=== PATIENT | male | born 1940 | race Caucasian/White ===

== ENCOUNTER → 2016-11-21 | Outpatient (CLI) | payer MEDICARE ==
[2016-05-13 11:15] VITALS: BP 144/69
[~2016-11-21] MED LIST: ALLO300T PO; ATOR40TA59 PO; BUME1TAB PO; LISI10TA2 PO; METO50TA10 PO; OMEP40CA5 PO; POTA20TA4 PO; VALA1000 PO; WARF2TAB7 PO; WARF4TAB7 PO
[2016-11-21 16:07] LABS: CALCIUM 9.4 mg/dL (8.5-10.1); CREATININE 2.4 mg/dL (0.7-1.3); GFR 26.5; POTASSIUM 5.9 mmol/L (3.5-5.1)
== END | disposition home or self-care (01) ==
LOC: LAB 15:33
PROVIDERS: ATTEND Family Medicine
DX: I50.9 Heart failure, unspecified (principal)
CPT/HCPCS: 36415; 80048

== ENCOUNTER → 2016-11-26 | Outpatient (CLI) | payer MEDICARE ==
[2016-05-13 11:15] VITALS: BP 144/69
[2016-11-26 16:47] LABS: CALCIUM 9.3 mg/dL (8.5-10.1); GFR 32.6
[2016-11-26 17:04] LABS: POTASSIUM 6.2 mmol/L (3.5-5.1)
== END | disposition home or self-care (01) ==
LOC: LAB 16:14
PROVIDERS: ATTEND Internal Medicine Advanced Heart Failure and Transplant Cardiology
DX: I50.23 Acute on chronic systolic (congestive) heart failure (principal)
CPT/HCPCS: 36415; 80048

== ENCOUNTER → 2016-12-01 | Outpatient (CLI) | payer MEDICARE ==
[2016-05-13 11:15] VITALS: BP 144/69
[2016-12-01 15:48] LABS: CALCIUM 9.2 mg/dL (8.5-10.1); CREATININE 1.6 mg/dL (0.7-1.3); GFR 42.2; POTASSIUM 5.1 mmol/L (3.5-5.1)
== END | disposition home or self-care (01) ==
LOC: LAB 15:24
PROVIDERS: ATTEND Internal Medicine Advanced Heart Failure and Transplant Cardiology
DX: I50.23 Acute on chronic systolic (congestive) heart failure (principal)
CPT/HCPCS: 36415; 80048

== ENCOUNTER → 2016-12-16 | Outpatient (CLI) | payer MEDICARE ==
[2016-05-13 11:15] VITALS: BP 144/69
[2016-12-16 15:28] LABS: CALCIUM 9.2 mg/dL (8.5-10.1); GFR 32.6; POTASSIUM 4.5 mmol/L (3.5-5.1)
== END | disposition home or self-care (01) ==
LOC: LAB 14:46
PROVIDERS: ATTEND Internal Medicine Advanced Heart Failure and Transplant Cardiology
DX: I50.23 Acute on chronic systolic (congestive) heart failure (principal)
CPT/HCPCS: 36415; 80048

== ENCOUNTER → 2017-01-30 | Outpatient (CLI) | payer MEDICARE ==
[2016-05-13 11:15] VITALS: BP 144/69
[2017-01-30 12:46] LABS: CALCIUM 9.1 mg/dL (8.5-10.1); GFR 32.6; POTASSIUM 4.7 mmol/L (3.5-5.1)
== END | disposition home or self-care (01) ==
LOC: LAB 12:00
PROVIDERS: ATTEND Internal Medicine Advanced Heart Failure and Transplant Cardiology
DX: I50.23 Acute on chronic systolic (congestive) heart failure (principal)
CPT/HCPCS: 36415; 80048

== ENCOUNTER → 2017-02-25 | Outpatient (CLI) | payer MEDICARE ==
[2016-05-13 11:15] VITALS: BP 144/69
[2017-02-25 12:47] LABS: CALCIUM 9.1 mg/dL (8.5-10.1); CREATININE 2.2 mg/dL (0.7-1.3); GFR 29.2; POTASSIUM 4.4 mmol/L (3.5-5.1)
== END | disposition home or self-care (01) ==
LOC: LAB 11:29
DX: N18.3 Chronic kidney disease, stage 3 (moderate) (principal)
CPT/HCPCS: 36415; 80048

== ENCOUNTER → 2017-06-06 | Outpatient (CLI) | payer MEDICARE ==
[2016-05-13 11:15] VITALS: BP 144/69
[~2017-06-06] MED LIST changes: -METO50TA10 PO; +METO50TA29 PO
[2017-06-06 13:54] LABS: CALCIUM 9.2 mg/dL (8.5-10.1); CREATININE 2.4 mg/dL (0.7-1.3); GFR 26.4; POTASSIUM 4.2 mmol/L (3.5-5.1)
== END | disposition home or self-care (01) ==
LOC: LAB 13:12
PROVIDERS: ATTEND Internal Medicine Advanced Heart Failure and Transplant Cardiology
DX: I13.0 Hypertensive heart and chronic kidney disease with heart failure and stage 1 through stage 4 chronic kidney disease, or unspecified chronic kidney disease (principal); I50.23 Acute on chronic systolic (congestive) heart failure; N18.3 Chronic kidney disease, stage 3 (moderate); Z87.891 Personal history of nicotine dependence
CPT/HCPCS: 36415; 80048

== ENCOUNTER → 2017-09-25 | Outpatient (CLI) | payer MEDICARE ==
[2016-05-13 11:15] VITALS: BP 144/69
[2017-09-25 11:33] LABS: CALCIUM 9.2 mg/dL (8.5-10.1); CREATININE 2.4 mg/dL (0.7-1.3); GFR 26.4; POTASSIUM 3.9 mmol/L (3.5-5.1)
== END | disposition home or self-care (01) ==
LOC: LAB 10:37
PROVIDERS: ATTEND Internal Medicine Advanced Heart Failure and Transplant Cardiology
DX: I11.0 Hypertensive heart disease with heart failure (principal); I50.23 Acute on chronic systolic (congestive) heart failure
CPT/HCPCS: 36415; 80048

== ENCOUNTER → 2017-09-30 | Outpatient (CLI) | payer MEDICARE ==
[2016-05-13 11:15] VITALS: BP 144/69
--- NOTE | 2017-09-30 15:29 | RAD ---
Chest, 2 views, 09/30/2017: History: Preop evaluation for knee surgery Comparison is made to a study from 05/12/2016. There has been a previous median sternotomy. There is moderate chronic elevation of the right hemidiaphragm. The heart is mildly enlarged. There is calcific plaquing and tortuosity of the thoracic aorta. The pulmonary vascularity is normal. No pulmonary infiltrate is seen. There is a probable calcified granuloma in the left base. No pleural fluid is evident. Moderate hypertrophic spurring is present in the spine. IMPRESSION: 1. Chronic elevation of the right hemidiaphragm. 2. Mild cardiomegaly and aortic atherosclerosis. 3. No acute infiltrates.
[2017-09-30 21:06] LABS: BILIRUBIN,URINE NEG (NEG); CLARITY,URINE CLEAR; COLOR,URINE YELLOW; GLUCOSE,URINE NEG (NEG); NITRITE,URINE NEG (NEG); UROBILINOGEN,URINE 0.2 mg/dL (0.2 mg/dL)
[2017-09-30 21:07] LABS: BACTERIA,URINE 0 /HPF (0-FEW); HYALINE CASTS, URINE FEW /HPF; SQUAMOUS EPITHELIAL CELL,UR FEW /LPF; WBC,URINE OCC /HPF (0-4)
== END | disposition home or self-care (01) ==
LOC: DXRAD 15:02
DX: Z01.818 Encounter for other preprocedural examination (principal); M17.11 Unilateral primary osteoarthritis, right knee; I13.0 Hypertensive heart and chronic kidney disease with heart failure and stage 1 through stage 4 chronic kidney disease, or unspecified chronic kidney disease; I50.43 Acute on chronic combined systolic (congestive) and diastolic (congestive) heart failure; N18.3 Chronic kidney disease, stage 3 (moderate); I70.0 Atherosclerosis of aorta; Z87.891 Personal history of nicotine dependence
CPT/HCPCS: 36415; 71046; 81001; 85610

== ENCOUNTER 2017-10-14 05:01 | Emergency (ER) | payer MEDICARE ==
[~2017-10-14] VITALS: Ht 175.3 cm; Wt 89.8 kg
--- NOTE | 2017-10-14 05:08 | ED.ADGEN ---
Past History Past Medical History: A-Fib, Arthritis, CAD, CHF, High Cholesterol, Heart Disease, Hypertension, Other Past Surgical History: Coronary Bypass Surgery, Knee Replacement, Other Alcohol Use: Heavy Drug Use: None Adult General Chief Complaint Chief Complaint " I had a little nasal bleeding yesterday.. but I went ahead and took my anticoagulant.. but It really started bleeding tonight..." HPI HPI Patient is a 76 year old male who presents with above hx and complaints left epistaxis. Patient recently underwent right knee replacement. Patient normally on Xarelto for his afib. Patient recently completed a course of amoxicillin. Patient normally follows with Dr. Salinas. Patient has known history of hypertension, diabetes, coronary artery disease, A. fib, Review of Systems Review of Systems Constitutional: Denies fever or chills [] Eyes: Denies change in visual acuity, redness, or eye pain [] HENT: Complains of epistaxis left naris Respiratory: Denies cough or shortness of breath [] Cardiovascular: No additional information not addressed in HPI [] GI: Denies abdominal pain, nausea, vomiting, bloody stools or diarrhea [] : Denies dysuria or hematuria [] Musculoskeletal: Denies back pain or joint pain [] Integument: Denies rash or skin lesions [] Neurologic: Denies headache, focal weakness or sensory changes [] Endocrine: Denies polyuria or polydipsia [] All other systems were reviewed and found to be within normal limits, except as documented in this note. Family History Family History Noncontributory to presentation Current Medications Current Medications Current Medications Medications (Trade) Dose Ordered Sig/[facility] Start Time Stop Time Status Last Admin Dose Admin Amoxicillin (Amoxil) 250 mg 1X ONCE 10/14/17 06:45 10/14/17 06:46 DC 10/14/17 06:51 250 MG Bacitracin/ Polymyxin B Sulfate (Polysporin) 1 bryan 1X ONCE 10/14/17 05:30 10/14/17 05:31 DC 10/14/17 05:30 1 BRYAN Cocaine HCl 4 ml 1X ONCE 10/14/17 05:30 10/14/17 05:31 DC 10/14/17 05:30 4 ML Lidocaine HCl 20 ml 1X ONCE 10/14/17 05:30 10/14/17 05:31 DC Ondansetron HCl (Zofran) 8 mg 1X ONCE 10/14/17 05:30 10/14/17 05:31 DC 10/14/17 05:30 8 MG Oxymetazoline HCl (Afrin) 2 spray 1X ONCE 10/14/17 05:30 10/14/17 05:31 DC 10/14/17 05:30 2 SPRAY Sodium Chloride 1,000 ml @ 100 mls/hr Q10H 10/14/17 05:15 10/14/17 07:05 DC 10/14/17 05:50 100 MLS/HR See nursing for home meds Allergies Allergies Allergies Coded Allergies Type Severity Reaction Last Updated Verified No Known Drug Allergies 02/12/16 No Physical Exam Physical Exam Constitutional: moderately acute distress, non-toxic appearance. [] HENT: Normocephalic,, bilateral external ears normal, oropharynx moist, no oral exudates, nose bleeding left [place] area. Clots removed by suction. Eyes: PERRLA, EOMI, conjunctiva normal, no discharge. [] Neck: Normal range of motion, no tenderness, supple, no stridor. [] Cardiovascular: Irregular Heart rate and rhythm, no murmur . PMI to the left Lungs & Thorax: Bilateral breath sounds equal at apex auscultation []Mid line scar. Abdomen: Bowel sounds normal, soft, no tenderness, no masses, no pulsatile masses. [] Skin: Warm, dry, no erythema, no rash. Poor turgor. No notable petechiae Back: No tenderness, no CVA tenderness. [] Extremities: No tenderness, no cyanosis, no clubbing, ROM intact, right knee edema. Staple lines appear to be stable Neurologic: Alert and oriented X 3, normal motor function, normal sensory function, no focal deficits noted. [] Psychologic: Affect anxious, judgement normal, mood normal. [] Current Patient Data Vital Signs Vital Signs Date Time Temp Pulse Resp B/P (MAP) Pulse Ox O2 Delivery O2 Flow Rate FiO2 10/14/17 07:00 78 16 103/64 (77) 98 Room Air 10/14/17 05:01 98.1 Lab Results Laboratory Tests Test 10/14/17 05:20 White Blood Count 7.3 x10^3/uL (4.0-11.0) Red Blood Count 2.09 x10^6/uL (4.30-5.70) L Hemoglobin 8.1 g/dL (13.0-17.5) L Hematocrit 24.2 % (39.0-53.0) L Mean Corpuscular Volume 116 fL (79-100) H Mean Corpuscular Hemoglobin 39 pg (25-35) H Mean Corpuscular Hemoglobin Concent 34 g/dL (31-37) Red Cell Distribution Width 15.8 % (11.5-14.5) H Platelet Count 225 x10^3/uL (140-400) # Neutrophils (%) (Auto) 65 % (31-73) Lymphocytes (%) (Auto) 20 % (24-48) L Monocytes (%) (Auto) 11 % (0-9) H Eosinophils (%) (Auto) 2 % (0-3) Basophils (%) (Auto) 2 % (0-3) Neutrophils # (Auto) 4.7 x10^3uL (1.8-7.7) Lymphocytes # (Auto) 1.4 x10^3/uL (1.0-4.8) Monocytes # (Auto) 0.8 x10^3/uL (0.0-1.1) Eosinophils # (Auto) 0.2 x10^3/uL (0.0-0.7) Basophils # (Auto) 0.2 x10^3/uL (0.0-0.2) Prothrombin Time 16.1 SEC (9.4-11.4) H Prothrombin Time INR 1.6 (0.9-1.1) H PTT 47 SEC (23-33) H Sodium Level 137 mmol/L (136-145) Potassium Level 4.7 mmol/L (3.5-5.1) Chloride Level 100 mmol/L (98-107) Carbon Dioxide Level 23 mmol/L (21-32) Anion Gap 14 (6-14) Blood Urea Nitrogen 72 mg/dL (8-26) H Creatinine 2.0 mg/dL (0.7-1.3) H Estimated GFR (Cockcroft-Gault) 32.6 Glucose Level 129 mg/dL (70-99) H Calcium Level 8.7 mg/dL (8.5-10.1) Total Bilirubin 1.1 mg/dL (0.2-1.0) H Direct Bilirubin 0.7 mg/dL (0.0-0.2) H Aspartate Amino Transferase (AST) 45 U/L (15-37) H Alanine Aminotransferase (ALT) 18 U/L (16-63) Alkaline Phosphatase 149 U/L (46-116) H Creatine Kinase 97 U/L (39-308) Creatine Kinase MB (Mass) 0.9 ng/mL (0.0-3.6) Creatine Kinase MB Relative Index 0.9 % (0-4) Troponin I Quantitative 0.020 ng/mL (0-0.055) Total Protein 6.8 g/dL (6.4-8.2) Albumin 3.1 g/dL (3.4-5.0) L Amylase Level 61 U/L (25-115) Lipase 804 U/L (73-393) H EKG EKG I interpretation EKG shows a irregular A. fib at 73 bpm. Does have a leftward axis. An occasional PVC.[] Radiology/Procedures Radiology/Procedures [] Course & Med Decision Making Course & Med Decision Making Pertinent Labs and Imaging studies reviewed. (See chart for details). Patient take amoxicillin 500x3 times a day. Patient to leave nasal packing in for at least 3 days. Patient follow-up with Dr. Alvarez. Patient sleeps with head elevated. Patient to not blow nose. Patient not to take any NSAIDs or his Xarelto for 2 days [] Final Impression Final Impression 1. Epistaxis left naris Problems: Dragon Disclaimer Dragon Disclaimer This electronic medical record was generated, in whole or in part, using a voice recognition dictation system. SUNNY HORNER MD Oct 14, 2017 05:08
[2017-10-14] MEDS ORDERED: OXYMETAZOLINE 0.05% NASAL SPRAY 15ML BOTTLE. NS ONE ×2 (05:11→05:30)
[2017-10-14] MEDS ORDERED: ONDANSETRON PF 4 MG/2 ML VIAL. ONE (05:11)
[2017-10-14] MEDS ORDERED: IV NORMAL SALINE 1,000ML 1,000 ML IV SCH (05:15)
[2017-10-14] MEDS ORDERED: ONDANSETRON PF 4 MG/2 ML VIAL. IV ONE (05:30)
[2017-10-14] MEDS ORDERED: COCAINE 4% TOPICAL SOLUTION TP ONE (05:30)
[2017-10-14] MEDS ORDERED: LIDOCAINE 2% 20 ML VIAL. IJ ONE (05:30)
[2017-10-14] MEDS ORDERED: BACITRACIN/POLYMYXIN B TOPICAL OINT 15GM TUBE. TP ONE (05:30)
[2017-10-14 05:37] LABS: BASO # 0.2 x10^3/uL (0.0-0.2); BASO % 2 % (0-3); EOS # 0.2 x10^3/uL (0.0-0.7); EOS % 2 % (0-3); HEMATOCRIT 24.2 % (39.0-53.0); HEMOGLOBIN 8.1 g/dL (13.0-17.5); LYMPH # 1.4 x10^3/uL (1.0-4.8); LYMPH % 20 % (24-48); MEAN CORPUSCULAR HEMOGLOBIN 39 pg (25-35); MEAN CORPUSCULAR HGB CONC 34 g/dL (31-37); MEAN CORPUSCULAR VOLUME 116 fL (79-100); MONO # 0.8 x10^3/uL (0.0-1.1); MONO % 11 % (0-9); NEUT # 4.7 x10^3uL (1.8-7.7); NEUT % 65 % (31-73); PLATELET COUNT 225 x10^3/uL (140-400); RED BLOOD COUNT 2.09 x10^6/uL (4.30-5.70); RED CELL DISTRIBUTION WIDTH 15.8 % (11.5-14.5); WHITE BLOOD COUNT 7.3 x10^3/uL (4.0-11.0)
[2017-10-14 06:01] LABS: ALBUMIN 3.1 g/dL (3.4-5.0); CALCIUM 8.7 mg/dL (8.5-10.1); DIRECT BILIRUBIN 0.7 mg/dL (0.0-0.2); GFR 32.6; POTASSIUM 4.7 mmol/L (3.5-5.1); TOTAL BILIRUBIN 1.1 mg/dL (0.2-1.0); TOTAL PROTEIN 6.8 g/dL (6.4-8.2)
[2017-10-14] MEDS ORDERED: AMOX250T PO (06:41)
[2017-10-14] MEDS ORDERED: AMOXICILLIN 250 MG CAPSULE PO ONE (06:45)
[2017-10-14 07:00] VITALS: BP 103/64
--- NOTE | 2017-10-14 07:53 | EKG ---
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
== END 2017-10-14 07:04 | disposition home or self-care (01) ==
LOC: ER 05:01
DX: R04.0 Epistaxis (principal); I48.91 Unspecified atrial fibrillation; I25.10 Atherosclerotic heart disease of native coronary artery without angina pectoris; I11.0 Hypertensive heart disease with heart failure; I50.9 Heart failure, unspecified; E78.00 Pure hypercholesterolemia, unspecified; E11.9 Type 2 diabetes mellitus without complications; Z95.1 Presence of aortocoronary bypass graft; F10.20 Alcohol dependence, uncomplicated; Z96.651 Presence of right artificial knee joint; Z79.01 Long term (current) use of anticoagulants
CPT/HCPCS: 30905; 36415; 80048; 80076; 82150; 82553; 83690; 84484; 85025; 85045; 85610; 85730; 93005; 96361; 96374; 99285; J2405; J7030

== ENCOUNTER 2017-10-14 08:51 | Emergency (ER) | payer MEDICARE ==
[~2017-10-14] VITALS: Ht 175.3 cm; Wt 89.8 kg
[~2017-10-14 08:51] MED LIST changes: +AMOX250T PO
[2017-10-14] MEDS ORDERED: IV NORMAL SALINE 1,000ML 1,000 ML IV ONE (09:15)
--- NOTE | 2017-10-14 09:31 | PHYS DOC ---
Past History Past Medical History: A-Fib, Arthritis, CAD, CHF, High Cholesterol, Heart Disease, Hypertension, Other Past Surgical History: Coronary Bypass Surgery, Knee Replacement, Other Alcohol Use: Heavy Drug Use: None Adult General Chief Complaint Chief Complaint: NOSEBLEED HPI HPI Patient is a 76 year old M who presents with nosebleed. Arthur was seen in the emergency department approximately 3 hours ago at which time a Rhino Rocket was placed in the left An. He was observed for 2 hours and his nosebleed stopped. Approximately an hour after discharge he began having blood in his mouth. This bleeding has gradually increased and is also noted in the right An. He does have mild associated dizziness. His risk factors include being on Xarelto, CAD, CHF, chronic kidney disease, and multiple medications. He denies nausea or vomiting. He denies headache. He has no known exacerbating or alleviating factors. Review of Systems Review of Systems Constitutional: Denies fever or chills [] Eyes: Denies change in visual acuity, redness, or eye pain [] HENT: Negative except history of present illness Respiratory: Denies cough or shortness of breath [] Cardiovascular: No additional information not addressed in HPI [] GI: Denies abdominal pain, nausea, vomiting, bloody stools or diarrhea [] : Denies dysuria or hematuria [] Musculoskeletal: Denies back pain or joint pain [] Integument: Denies rash or skin lesions [] Neurologic: Denies headache, focal weakness or sensory changes [] Endocrine: Denies polyuria or polydipsia [] All other systems were reviewed and found to be within normal limits, except as documented in this note. Family History Family History No pertinent family medical history was reported Current Medications Current Medications Current medications reviewed Allergies Allergies Allergies Coded Allergies Type Severity Reaction Last Updated Verified No Known Drug Allergies 02/12/16 No Physical Exam Physical Exam Constitutional: Well developed, well nourished, no acute distress, non-toxic appearance. [] HENT: Normocephalic, atraumatic Rhino Rocket in place in the left An. Mild blood noted in the right An without obvious source of bleeding. Moderate blood noted in the oropharynx Eyes: EOMI, conjunctiva normal, no discharge. [] Neck: Normal range of motion, no tenderness, supple, no stridor. [] Cardiovascular: Irregularly irregular. Trace edema noted in bilateral lower extremities Lungs & Thorax: Bilateral breath sounds clear to auscultation [] Abdomen: Bowel sounds normal, soft, no tenderness, no masses, no pulsatile masses. [] Skin: Warm, dry, no erythema, no rash. [] Extremities: No tenderness, no cyanosis, no clubbing, ROM intact, no edema. [] Neurologic: Alert and oriented X 3, normal motor function, normal sensory function, no focal deficits noted. [] Psychologic: Affect normal, judgement normal, mood normal. [] Current Patient Data Vital Signs Vital Signs Date Time Temp Pulse Resp B/P (MAP) Pulse Ox O2 Delivery O2 Flow Rate FiO2 10/14/17 09:17 98.0 71 20 94 Room Air EKG EKG [] Radiology/Procedures Radiology/Procedures [] Course & Med Decision Making Course & Med Decision Making Pertinent Labs and Imaging studies reviewed. (See chart for details) Due to multiple medical conditions and anticoagulation status in the setting of persistent nose bleeding ENT was contacted immediately and transfer was recommended to emergency room for further management. 2 large-bore IVs were started and a bolus of normal saline was administered. The pressure in the Rhino Rocket in the left An was mildly increased. No increased discomfort was noted. Bleeding was minimal however there is concern that he may be concealing blood in the posterior nasopharynx and/or Nasal cavity. Dr. Alvarez was attempted to be contacted by phone. Dragon Disclaimer Dragon Disclaimer This electronic medical record was generated, in whole or in part, using a voice recognition dictation system. Departure Departure: Impression: Primary Impression: Posterior epistaxis Additional Impression: Recurrent epistaxis Disposition: XFER OTHER Condition: GUARDED Referrals: CHAPARRITA ALVAREZ MD (PCP) Problem Qualifiers CHAPARRITA STONE MD Oct 14, 2017 09:31
[2017-10-14 09:34] VITALS: BP 120/67
== END 2017-10-14 09:43 | disposition short-term general hospital (02) ==
LOC: ER 08:51
DX: R04.0 Epistaxis (principal); I48.91 Unspecified atrial fibrillation; I25.10 Atherosclerotic heart disease of native coronary artery without angina pectoris; E78.00 Pure hypercholesterolemia, unspecified; I11.0 Hypertensive heart disease with heart failure; I50.9 Heart failure, unspecified; F10.20 Alcohol dependence, uncomplicated; Z95.1 Presence of aortocoronary bypass graft
CPT/HCPCS: 96360; 99285-25; J7030

== ENCOUNTER → 2018-01-01 | Outpatient (CLI) | payer MEDICARE ==
[~2018-01-01] MED LIST changes: -WARF2TAB7 PO; +WARF2TAB96 PO; +WARF4TAB64 PO; -WARF4TAB7 PO
[2018-01-01 10:56] LABS: BACTERIA,URINE 0 /HPF (0-FEW); BILIRUBIN,URINE NEG (NEG); CLARITY,URINE CLEAR; COLOR,URINE YELLOW; GLUCOSE,URINE NEG (NEG); NITRITE,URINE NEG (NEG); RBC,URINE 0 /HPF (0-2); SQUAMOUS EPITHELIAL CELL,UR OCC /LPF; UROBILINOGEN,URINE 0.2 mg/dL (0.2 mg/dL); WBC,URINE 0 /HPF (0-4)
[2018-01-01 11:00] LABS: ALBUMIN 3.7 g/dL (3.4-5.0); CREATININE 1.8 mg/dL (0.7-1.3); GFR 36.7; POTASSIUM 4.7 mmol/L (3.5-5.1); TOTAL BILIRUBIN 0.7 mg/dL (0.2-1.0); TOTAL PROTEIN 7.4 g/dL (6.4-8.2)
[2018-01-01 11:01] LABS: BASO % 1 % (0-3); EOS # 0.2 x10^3/uL (0.0-0.7); EOS % 5 % (0-3); HEMATOCRIT 31.7 % (39.0-53.0); HEMOGLOBIN 10.4 g/dL (13.0-17.5); LYMPH % 24 % (24-48); MEAN CORPUSCULAR HEMOGLOBIN 38 pg (25-35); MEAN CORPUSCULAR HGB CONC 33 g/dL (31-37); MEAN CORPUSCULAR VOLUME 115 fL (79-100); MONO # 0.4 x10^3/uL (0.0-1.1); MONO % 10 % (0-9); NEUT # 2.5 x10^3uL (1.8-7.7); NEUT % 61 % (31-73); PLATELET COUNT 141 x10^3/uL (140-400); RED BLOOD COUNT 2.77 x10^6/uL (4.30-5.70); RED CELL DISTRIBUTION WIDTH 16.6 % (11.5-14.5); WHITE BLOOD COUNT 4.2 x10^3/uL (4.0-11.0)
[2018-01-01 11:34] LABS: ANISOCYTOSIS SLIGHT; HYPOCHROMIA SLIGHT; OVALOCYTES OCC; PLT ESTIMATE ADEQUATE (ADEQUATE); SCHISTOCYTES OCC; TEAR DROP CELLS OCC
== END | disposition home or self-care (01) ==
LOC: LAB 09:37
PROVIDERS: ATTEND Orthopaedic Surgery
DX: Z01.818 Encounter for other preprocedural examination (principal); M17.11 Unilateral primary osteoarthritis, right knee; I13.0 Hypertensive heart and chronic kidney disease with heart failure and stage 1 through stage 4 chronic kidney disease, or unspecified chronic kidney disease; E11.22 Type 2 diabetes mellitus with diabetic chronic kidney disease; I50.9 Heart failure, unspecified; N18.3 Chronic kidney disease, stage 3 (moderate); E78.5 Hyperlipidemia, unspecified
CPT/HCPCS: 36415; 80053; 81001; 85025; 85610

== ENCOUNTER → 2018-04-05 | Outpatient (CLI) | payer MEDICARE ==
[2018-04-05 10:44] LABS: ALBUMIN 3.6 g/dL (3.4-5.0); ALBUMIN/GLOBULIN RATIO 0.9 (1.0-1.7); CALCIUM 8.5 mg/dL (8.5-10.1); CREATININE 3.3 mg/dL (0.7-1.3); GFR 18.2; MAGNESIUM 2.7 mg/dL (1.8-2.4); POTASSIUM 4.7 mmol/L (3.5-5.1); TOTAL BILIRUBIN 0.9 mg/dL (0.2-1.0); TOTAL PROTEIN 7.5 g/dL (6.4-8.2)
--- NOTE | 2018-04-05 14:53 | RAD ---
EXAM: Chest, 2 views HISTORY: Cough. Paralyzed diaphragm. COMPARISON: 09/30/2017 FINDINGS: 2 views of the chest are obtained. There is stable elevation of the right hemidiaphragm with suspected right middle and lower lobe compressive atelectasis. There is cardiomegaly and evidence of prior CABG. There is no infiltrate, pleural effusion or pneumothorax. IMPRESSION: 1. Stable elevation of the right hemidiaphragm and right middle and lower lobe atelectasis. 2. Stable cardiomegaly. Electronically signed by: Gema Collins MD (04/05/2018 2:35 PM) [place] [id number]
[2018-04-06 16:14] LABS: FREE T4 0.78 ng/dL (0.76-1.46); THYROID STIM HORMONE (TSH) 6.829 uIU/mL (0.358-3.740)
== END | disposition home or self-care (01) ==
LOC: LAB 10:06
PROVIDERS: ATTEND Internal Medicine Cardiovascular Disease
DX: J98.11 Atelectasis (principal); J98.6 Disorders of diaphragm; I13.0 Hypertensive heart and chronic kidney disease with heart failure and stage 1 through stage 4 chronic kidney disease, or unspecified chronic kidney disease; E11.22 Type 2 diabetes mellitus with diabetic chronic kidney disease; I50.9 Heart failure, unspecified; N18.3 Chronic kidney disease, stage 3 (moderate); E78.00 Pure hypercholesterolemia, unspecified; E78.5 Hyperlipidemia, unspecified; I48.2 Chronic atrial fibrillation; I25.10 Atherosclerotic heart disease of native coronary artery without angina pectoris; K21.9 Gastro-esophageal reflux disease without esophagitis; Z96.651 Presence of right artificial knee joint; Z95.1 Presence of aortocoronary bypass graft; Z87.891 Personal history of nicotine dependence; Z82.49 Family history of ischemic heart disease and other diseases of the circulatory system
CPT/HCPCS: 36415; 71046; 80053; 83735; 84439; 84443

== ENCOUNTER 2018-05-04 17:14 | Emergency (ER) | payer MEDICARE ==
[~2018-05-04] VITALS: Ht 175.3 cm; Wt 89.8 kg
[2018-05-04] MEDS ORDERED: IV NORMAL SALINE 1,000ML 1,000 ML IV ONE (17:30)
--- NOTE | 2018-05-04 17:49 | RAD ---
Exam: AP portable chest History: Chest pain. Hypoxia. Comparison: April 05, 2018. Findings: There is chronic elevation of right hemidiaphragm. Median sternotomy wires are present. Given positioning, cardiac silhouette appears at the upper limits of normal for size. No pneumothorax or large pleural effusion is identified. There is accentuation of pulmonary vascularity. No large consolidation is seen. Impression: 1. Accentuation of pulmonary vascularity, may indicate pulmonary vascular congestion. Electronically signed by: Laith Diego MD (05/04/2018 5:45 PM) [facility]
[2018-05-04 17:51] LABS: BASO # 0.1 x10^3/uL (0.0-0.2); BASO % 1 % (0-3); EOS # 0.2 x10^3/uL (0.0-0.7); EOS % 3 % (0-3); LYMPH % 16 % (24-48); MEAN CORPUSCULAR HEMOGLOBIN 40 pg (25-35); MEAN CORPUSCULAR HGB CONC 33 g/dL (31-37); MEAN CORPUSCULAR VOLUME 121 fL (79-100); MONO # 0.6 x10^3/uL (0.0-1.1); MONO % 9 % (0-9); NEUT # 4.7 x10^3uL (1.8-7.7); NEUT % 71 % (31-73); PLATELET COUNT 145 x10^3/uL (140-400); RED BLOOD COUNT 1.42 x10^6/uL (4.30-5.70); RED CELL DISTRIBUTION WIDTH 18.6 % (11.5-14.5); WHITE BLOOD COUNT 6.5 x10^3/uL (4.0-11.0)
[2018-05-04] MEDS ORDERED: ONDANSETRON PF 4 MG/2 ML VIAL. ONE (17:59)
[2018-05-04 18:01] LABS: ALBUMIN 3.3 g/dL (3.4-5.0); ALBUMIN/GLOBULIN RATIO 1.1 (1.0-1.7); CALCIUM 8.5 mg/dL (8.5-10.1); CREATININE 4.2 mg/dL (0.7-1.3); GFR 13.8; MAGNESIUM 2.7 mg/dL (1.8-2.4); POTASSIUM 5.1 mmol/L (3.5-5.1); TOTAL BILIRUBIN 0.6 mg/dL (0.2-1.0); TOTAL PROTEIN 6.2 g/dL (6.4-8.2)
[2018-05-04 18:03] LABS: HEMOGLOBIN 5.7 g/dL (13.0-17.5)
[2018-05-04 18:04] LABS: HEMATOCRIT 17.2 % (39.0-53.0)
[2018-05-04 18:09] VITALS: BP 77/33
--- NOTE | 2018-05-04 18:28 | PHYS DOC ---
Past History Past Medical History: A-Fib, Arthritis, CAD, CHF, GERD, High Cholesterol, Heart Disease, Hypertension Past Surgical History: Coronary Bypass Surgery, Knee Replacement Alcohol Use: Heavy Drug Use: None Adult General Chief Complaint Chief Complaint: CHEST PAIN HPI HPI Patient is a 77 year old male who presents with comparing of back pain and chest pain. Patient has history of atrial fibrillation and taking Xarelto and had multiple falls for the last few months. Patient had a fall 5 days ago and complaining of mid back pain for the last 3 days as a constant pain with radiation to his chest. Patient denies loss of consciousness and focal neurodeficit but complaining of generalized weakness. Review of Systems Review of Systems Constitutional: Denies fever or chills [] Eyes: Denies change in visual acuity, redness, or eye pain [] HENT: Denies nasal congestion or sore throat [] Respiratory: Denies cough, reports shortness of breath [] Cardiovascular: No additional information not addressed in HPI [] GI: Denies abdominal pain, nausea, vomiting, bloody stools or diarrhea [] : Denies dysuria or hematuria [] Musculoskeletal: Denies back pain or joint pain [] Integument: Denies rash or skin lesions [] Neurologic: Denies headache, focal weakness or sensory changes [] Endocrine: Denies polyuria or polydipsia [] All other systems were reviewed and found to be within normal limits, except as documented in this note. Current Medications Current Medications Current Medications Medications (Trade) Dose Ordered Sig/[facility] Start Time Stop Time Status Last Admin Dose Admin Dopamine HCl/ Dextrose 250 ml @ As Directed STK-MED ONCE 05/04/18 17:47 05/04/18 17:48 DC Ondansetron HCl (Zofran) 4 mg STK-MED ONCE 05/04/18 17:59 05/04/18 18:00 DC Sodium Chloride 1,000 ml @ 1,000 mls/hr 1X ONCE 05/04/18 17:30 05/04/18 18:29 05/04/18 17:30 1,000 MLS/HR Allergies Allergies Allergies Coded Allergies Type Severity Reaction Last Updated Verified No Known Drug Allergies 10/14/17 No Physical Exam Physical Exam Constitutional: Moderate distress, non-toxic appearance, looks ill, afebrile. [] HENT: Normocephalic, areas of ecchymosis on nose and upper lip and cheek, oropharynx moist, no oral exudates, nose normal, pale[] Eyes: PERRLA, EOMI, conjunctiva normal, no discharge. [] Neck: Normal range of motion, no tenderness, supple, no stridor. [] Cardiovascular: Irregularly irregular with bradycardia Lungs & Thorax: Old chest wall contusion bilateral rales and rhonchi Abdomen: Bowel sounds normal, soft, no tenderness, no masses, no pulsatile masses. [] Skin: Warm, dry, no erythema, no rash. [] Back: No tenderness, no CVA tenderness. [] Extremities: Multiple upper and lower extremity ecchymoses, range of motion intact, 1+ bilateral lower extremity edema Neurologic: Alert and oriented X 3, normal motor function, normal sensory function, no focal deficits noted. [] Psychologic: Affect normal, judgement normal, mood normal. [] Current Patient Data Vital Signs Vital Signs Date Time Temp Pulse Resp B/P (MAP) Pulse Ox O2 Delivery O2 Flow Rate FiO2 05/04/18 17:43 47 18 82/37 (52) 92 Nasal Cannula 3.0 05/04/18 17:16 97.8 Lab Results Laboratory Tests Test 05/04/18 17:25 White Blood Count 6.5 x10^3/uL (4.0-11.0) Red Blood Count 1.42 x10^6/uL (4.30-5.70) L Hemoglobin 5.7 g/dL (13.0-17.5) *L Hematocrit 17.2 % (39.0-53.0) *L Mean Corpuscular Volume 121 fL (79-100) H Mean Corpuscular Hemoglobin 40 pg (25-35) H Mean Corpuscular Hemoglobin Concent 33 g/dL (31-37) Red Cell Distribution Width 18.6 % (11.5-14.5) H Platelet Count 145 x10^3/uL (140-400) Neutrophils (%) (Auto) 71 % (31-73) Lymphocytes (%) (Auto) 16 % (24-48) L Monocytes (%) (Auto) 9 % (0-9) Eosinophils (%) (Auto) 3 % (0-3) Basophils (%) (Auto) 1 % (0-3) Neutrophils # (Auto) 4.7 x10^3uL (1.8-7.7) Lymphocytes # (Auto) 1.0 x10^3/uL (1.0-4.8) Monocytes # (Auto) 0.6 x10^3/uL (0.0-1.1) Eosinophils # (Auto) 0.2 x10^3/uL (0.0-0.7) Basophils # (Auto) 0.1 x10^3/uL (0.0-0.2) Platelet Estimate Pending Sodium Level 137 mmol/L (136-145) Potassium Level 5.1 mmol/L (3.5-5.1) Chloride Level 104 mmol/L (98-107) Carbon Dioxide Level 17 mmol/L (21-32) L Anion Gap 16 (6-14) H Blood Urea Nitrogen 156 mg/dL (8-26) H Creatinine 4.2 mg/dL (0.7-1.3) H Estimated GFR (Cockcroft-Gault) 13.8 BUN/Creatinine Ratio 37 (6-20) H Glucose Level 141 mg/dL (70-99) H Lactic Acid Level 2.9 mmol/L (0.4-2.0) H Calcium Level 8.5 mg/dL (8.5-10.1) Magnesium Level 2.7 mg/dL (1.8-2.4) H Total Bilirubin 0.6 mg/dL (0.2-1.0) Aspartate Amino Transferase (AST) 21 U/L (15-37) Alanine Aminotransferase (ALT) 20 U/L (16-63) Alkaline Phosphatase 77 U/L (46-116) Creatine Kinase 50 U/L (39-308) Troponin I Quantitative 0.038 ng/mL (0-0.055) UE-Tsc-D-Type Natriuretic Peptide 3625 pg/mL (0-449) H Total Protein 6.2 g/dL (6.4-8.2) L Albumin 3.3 g/dL (3.4-5.0) L Albumin/Globulin Ratio 1.1 (1.0-1.7) EKG EKG [Urgent interpreted by me. EKG at 1717 showed atrial flutter physician at rate of 41, normal QRS S will take, nonspecific ST and T-wave abnormalities, LVH, Radiology/Procedures Radiology/Procedures [address] [address] IMAGING REPORT Signed PATIENT: MARTIN BECKMAN ACCOUNT: [id number] : 1940 LOCATION: ER AGE: 77 SEX: M EXAM STATUS: PRE ER ORD. PHYSICIAN: LADONNA CONTRERAS MD REASON: chest pain PROCEDURE: PORTABLE CHEST 1V Exam: AP portable chest History: Chest pain. Hypoxia. Comparison: April 05, 2018. Findings: There is chronic elevation of right hemidiaphragm. Median sternotomy wires are present. Given positioning, cardiac silhouette appears at the upper limits of normal for size. No pneumothorax or large pleural effusion is identified. There is accentuation of pulmonary vascularity. No large consolidation is seen. Impression: 1. Accentuation of pulmonary vascularity, may indicate pulmonary vascular congestion. Electronically signed by: Laith Pearl MD (05/04/2018 5:45 PM) [facility] DICTATED AND SIGNED BY: LAITH PEARL MD DATE: 05/04/181742 CC: CHAPARRITA HEREDIA MD; LADONNA CONTRERAS MD ~ Course & Med Decision Making Course & Med Decision Making Pertinent Labs and Imaging studies reviewed. (See chart for details) Evaluation of patient in ER showed 77-year-old male patient with fall 5 days ago and pain in back and chest for 3 days. Patient had atrial flutter with a with bradycardia as well as 30s and hypertension at 70s. IV fluid was started and Dr. Sims on-call air surveillance operator was consulted at 1738 who recommended to start low-dose dopamine. Patient had hemoglobin of 5 and O- blood type without crossmatch was started. Patient had improvement of heart rate to 50s and blood pressure to 80s. Evaluated for reason of anemia was not performed because of clinical condition and. Request of patient and his family member patient transferred to [facility]. Dr. Thomas accepted admission to [facility] at 1818. Dragon Disclaimer Dragon Disclaimer This electronic medical record was generated, in whole or in part, using a voice recognition dictation system. Departure Departure: Impression: Primary Impression: Acute chest pain Additional Impressions: Bradycardia Hypotension Severe anemia Acute renal failure Hypermagnesemia Atrial fibrillation Hemorrhage secondary to anti-coagulation Elevated lactic acid level Disposition: 05 XFER OTHER (transferred to [facility] at 1820) Condition: GUARDED Referrals: CHAPARRITA HEREDIA MD (PCP) Critical Care Time Critical care time was 70 minutes exclusive of procedures. Problem Qualifiers LADONNA CONTRERAS MD May 04, 2018 18:28
[2018-05-04 18:39] VITALS: BP 79/33
[2018-05-04 19:20] VITALS: BP 80/32
[2018-05-04 20:33] LABS: PLT ESTIMATE DECREASED (ADEQUATE)
[2018-05-04 20:34] LABS: ANISOCYTOSIS SLIGHT; OVALOCYTES OCC; STOMATOCYTES OCC; TEAR DROP CELLS OCC
[2018-05-04 20:35] LABS: SCHISTOCYTES OCC
--- NOTE | 2018-05-05 07:10 | EKG ---
[address] [address] Test Date: 2018-05-04 Test Time: 17:17:00 Pat Name: MARTIN BECKMAN Department: Room: Gender: Silk Folder: : 1940 Requested By: LADONNA CONTRERAS Order Number: [id number] Reading MD: Zen Hahn MD Measurements Intervals [place] Rate: P: AL: QRS: QRSD: T: QT: QTc: Interpretive Statements ATRIAL FIBRILLATION SLOW VENTRICULAR RESPONSE RBBB Electronically Signed On 05-06-2018 9:54:35 CDT by Zen Hahn MD
[2018-05-05] MEDS ORDERED: ONDANSETRON PF 4 MG/2 ML VIAL. IV ONE (14:00)
== END 2018-05-04 18:35 | disposition short-term general hospital (02) ==
LOC: ER 18:32
DX: I95.9 Hypotension, unspecified (principal); R00.1 Bradycardia, unspecified; D64.89 Other specified anemias; N17.9 Acute kidney failure, unspecified; E83.41 Hypermagnesemia; I48.91 Unspecified atrial fibrillation; R58 Hemorrhage, not elsewhere classified; R74.0 Nonspecific elevation of levels of transaminase and lactic acid dehydrogenase [LDH]; S60.222A Contusion of left hand, initial encounter; S60.221A Contusion of right hand, initial encounter; S80.12XA Contusion of left lower leg, initial encounter; S80.11XA Contusion of right lower leg, initial encounter; S00.531A Contusion of lip, initial encounter; S00.33XA Contusion of nose, initial encounter; S00.83XA Contusion of other part of head, initial encounter; M19.90 Unspecified osteoarthritis, unspecified site; I25.810 Atherosclerosis of coronary artery bypass graft(s) without angina pectoris; E78.00 Pure hypercholesterolemia, unspecified; I11.9 Hypertensive heart disease without heart failure; F10.20 Alcohol dependence, uncomplicated; Y90.9 Presence of alcohol in blood, level not specified; W19.XXXA Unspecified fall, initial encounter; Y93.89 Activity, other specified; Y92.89 Other specified places as the place of occurrence of the external cause; Y99.8 Other external cause status
CPT/HCPCS: 36415; 36430; 71045; 80053; 82550; 83605; 83735; 83880; 84484; 85025; 85610; 85730; 86850; 86900; 86901; 86920; 87040; 93005; 96365; 96375; 99291; J1265; J2405; P9016; J7030

== ENCOUNTER → 2018-05-28 | Outpatient (CLI) | payer MEDICARE ==
[2018-05-04 19:20] VITALS: BP 80/32
[2018-05-28 12:42] LABS: CALCIUM 8.8 mg/dL (8.5-10.1); CREATININE 2.5 mg/dL (0.7-1.3); GFR 25.1; POTASSIUM 5.2 mmol/L (3.5-5.1)
== END | disposition home or self-care (01) ==
LOC: LAB 11:35
DX: N17.9 Acute kidney failure, unspecified (principal)
CPT/HCPCS: 36415; 80048

== ENCOUNTER → 2018-06-21 | Outpatient (CLI) | payer MEDICARE ==
[2018-06-21 13:08] LABS: CREATININE 1.8 mg/dL (0.7-1.3); GFR 36.7; POTASSIUM 4.1 mmol/L (3.5-5.1)
== END | disposition home or self-care (01) ==
LOC: LAB 12:06
DX: I13.0 Hypertensive heart and chronic kidney disease with heart failure and stage 1 through stage 4 chronic kidney disease, or unspecified chronic kidney disease (principal); E11.22 Type 2 diabetes mellitus with diabetic chronic kidney disease; I50.812 Chronic right heart failure; N18.3 Chronic kidney disease, stage 3 (moderate)
CPT/HCPCS: 36415; 80048

== ENCOUNTER → 2018-07-27 | Outpatient (CLI) | payer MEDICARE ==
--- NOTE | 2018-07-27 12:55 | RAD ---
EXAM: Abdomen sonogram. HISTORY: Cirrhosis. TECHNIQUE: Sonographic imaging of the abdomen was performed. COMPARISON: CT dated 05/09/2016. FINDINGS: The liver is normal in size. No focal hepatic lesion is seen. There is no convincing hepatic surface nodularity to suggest cirrhosis. There is cholelithiasis and gallbladder sludge. The gallbladder is otherwise unremarkable. The common bile duct is normal in caliber. The kidneys are normal in size. There is no solid or cystic renal lesion or hydronephrosis. The spleen is upper normal in size to mildly enlarged. The pancreas, aorta and inferior vena cava are partially obscured due to bowel gas. There is no identifiable ascites. IMPRESSION: 1. Cholelithiasis and gallbladder sludge. 2. Upper normal to mildly enlarged spleen. 3. No sonographic evidence of a focal hepatic lesion. Electronically signed by: Gema Collins MD (07/27/2018 12:51 PM) [id number]
== END | disposition home or self-care (01) ==
LOC: US 10:43
DX: K80.20 Calculus of gallbladder without cholecystitis without obstruction (principal); R16.1 Splenomegaly, not elsewhere classified
CPT/HCPCS: 76700

== ENCOUNTER 2018-09-19 18:17 | Emergency (ER) | payer MEDICARE ==
[~2018-09-19] VITALS: Ht 175.3 cm; Wt 89.8 kg
[2018-09-19 18:51] LABS: BASO # 0.1 x10^3/uL (0.0-0.2); BASO % 1 % (0-3); EOS # 0.1 x10^3/uL (0.0-0.7); EOS % 2 % (0-3); LYMPH # 0.8 x10^3/uL (1.0-4.8); LYMPH % 15 % (24-48); MEAN CORPUSCULAR HEMOGLOBIN 39 pg (25-35); MEAN CORPUSCULAR HGB CONC 33 g/dL (31-37); MEAN CORPUSCULAR VOLUME 119 fL (79-100); MONO % 18 % (0-9); NEUT # 3.5 x10^3uL (1.8-7.7); NEUT % 63 % (31-73); PLATELET COUNT 137 x10^3/uL (140-400); RED BLOOD COUNT 1.13 x10^6/uL (4.30-5.70); RED CELL DISTRIBUTION WIDTH 18.6 % (11.5-14.5); WHITE BLOOD COUNT 5.6 x10^3/uL (4.0-11.0)
[2018-09-19 18:57] LABS: HEMOGLOBIN 4.4 g/dL (13.0-17.5)
[2018-09-19 18:58] LABS: HEMATOCRIT 13.4 % (39.0-53.0)
[2018-09-19 19:05] LABS: ALBUMIN 2.9 g/dL (3.4-5.0); ALBUMIN/GLOBULIN RATIO 0.9 (1.0-1.7); CALCIUM 8.3 mg/dL (8.5-10.1); CREATININE 3.9 mg/dL (0.7-1.3); TOTAL BILIRUBIN 1.3 mg/dL (0.2-1.0)
[2018-09-19] MEDS ORDERED: PANTOPRAZOLE IV 40 MG VIAL. ONE (19:05)
[2018-09-19] MEDS ORDERED: IV NORMAL SALINE 100ML 100 ML ONE (19:06)
[2018-09-19 19:19] LABS: FECAL OB PT POSITIVE (NEG)
[2018-09-19] MEDS ORDERED: PANTOPRAZOLE IV 80 MG in IV NORMAL SALINE 100ML 100 ML IV ONE (19:30)
[2018-09-19] MEDS ORDERED: PANTOPRAZOLE IV 40 MG VIAL. IVP ONE (19:30)
--- NOTE | 2018-09-19 19:36 | PHYS DOC ---
Adult General Chief Complaint Chief Complaint weakness HPI HPI 77 years old male with history of upper GI bleed or so history of congestive heart failure, a fibrillation, lungs are also presented to the emergency department with generalized weakness and black tarry stool for 4 days he also complaining of exertional shortness of breath no chest pain no any other symptoms Review of Systems Review of Systems Constitutional: Denies fever or chills [] Eyes: Denies change in visual acuity, redness, or eye pain [] HENT: Denies nasal congestion or sore throat [] Respiratory: Denies cough Cardiovascular: No additional information not addressed in HPI [] GI: Denies abdominal pain, nausea, vomiting, bloody stools or diarrhea [] : Denies dysuria or hematuria [] Musculoskeletal: Denies back pain or joint pain [] Integument: Denies rash or skin lesions [] Neurologic: Denies headache, focal weakness or sensory changes [] Endocrine: Denies polyuria or polydipsia [] All other systems were reviewed and found to be within normal limits, except as documented in this note. Current Medications Current Medications Current Medications Medications (Trade) Dose Ordered Sig/Radames Start Time Stop Time Status Last Admin Dose Admin Pantoprazole Sodium (Protonix Vial) 40 mg STK-MED ONCE 09/19/18 19:05 09/19/18 19:06 DC Pantoprazole Sodium 80 mg/ Sodium Chloride 100 ml @ 10 mls/hr 1X ONCE 09/19/18 19:30 09/20/18 05:29 09/19/18 19:08 10 MLS/HR Sodium Chloride 100 ml @ As Directed STK-MED ONCE 09/19/18 19:06 09/19/18 19:07 DC Allergies Allergies Allergies Coded Allergies Type Severity Reaction Last Updated Verified No Known Drug Allergies 10/14/17 No Physical Exam Physical Exam Constitutional: Well developed, well nourished, no acute distress, non-toxic appearance. [] HENT: Normocephalic, atraumatic, bilateral external ears normal, oropharynx moist, no oral exudates, nose normal. [] Eyes: PERRLA, EOMI, conjunctiva normal, no discharge. [] Neck: Normal range of motion, no tenderness, supple, no stridor. [] Cardiovascular:Heart rate regular rhythm, no murmur [] Lungs & Thorax: Bilateral breath sounds clear to auscultation [] Abdomen: Bowel sounds normal, soft, no tenderness, no masses, no pulsatile masses. [] Skin: Warm, dry, no erythema, no rash. [] Back: No tenderness, no CVA tenderness. [] Extremities: No tenderness, no cyanosis, no clubbing, ROM intact, no edema. [] Neurologic: Alert and oriented X 3, normal motor function, normal sensory function, no focal deficits noted. [] Psychologic: Affect normal, judgement normal, mood normal. [] Current Patient Data Vital Signs Vital Signs Date Time Temp Pulse Resp B/P (MAP) Pulse Ox O2 Delivery O2 Flow Rate FiO2 09/19/18 18:44 Room Air 09/19/18 18:44 82 20 Lab Results Laboratory Tests Test 09/19/18 18:28 09/19/18 18:48 White Blood Count 5.6 x10^3/uL (4.0-11.0) Red Blood Count 1.13 x10^6/uL (4.30-5.70) L Hemoglobin 4.4 g/dL (13.0-17.5) *L Hematocrit 13.4 % (39.0-53.0) *L Mean Corpuscular Volume 119 fL (79-100) H Mean Corpuscular Hemoglobin 39 pg (25-35) H Mean Corpuscular Hemoglobin Concent 33 g/dL (31-37) Red Cell Distribution Width 18.6 % (11.5-14.5) H Platelet Count 137 x10^3/uL (140-400) L Neutrophils (%) (Auto) 63 % (31-73) Lymphocytes (%) (Auto) 15 % (24-48) L Monocytes (%) (Auto) 18 % (0-9) H Eosinophils (%) (Auto) 2 % (0-3) Basophils (%) (Auto) 1 % (0-3) Neutrophils # (Auto) 3.5 x10^3uL (1.8-7.7) Lymphocytes # (Auto) 0.8 x10^3/uL (1.0-4.8) L Monocytes # (Auto) 1.0 x10^3/uL (0.0-1.1) Eosinophils # (Auto) 0.1 x10^3/uL (0.0-0.7) Basophils # (Auto) 0.1 x10^3/uL (0.0-0.2) PTT 42 SEC (23-33) H Sodium Level 137 mmol/L (136-145) Potassium Level 4.0 mmol/L (3.5-5.1) Chloride Level 96 mmol/L (98-107) L Carbon Dioxide Level 26 mmol/L (21-32) Anion Gap 15 (6-14) H Blood Urea Nitrogen 111 mg/dL (8-26) H Creatinine 3.9 mg/dL (0.7-1.3) H Estimated GFR (Cockcroft-Gault) 15.0 BUN/Creatinine Ratio 28 (6-20) H Glucose Level 160 mg/dL (70-99) H Calcium Level 8.3 mg/dL (8.5-10.1) L Total Bilirubin 1.3 mg/dL (0.2-1.0) H Aspartate Amino Transferase (AST) 228 U/L (15-37) H Alanine Aminotransferase (ALT) 151 U/L (16-63) H Alkaline Phosphatase 85 U/L (46-116) Troponin I Quantitative 0.040 ng/mL (0-0.055) Total Protein 6.0 g/dL (6.4-8.2) L Albumin 2.9 g/dL (3.4-5.0) L Albumin/Globulin Ratio 0.9 (1.0-1.7) L Stool Occult Blood Positive (NEG) EKG EKG [] Radiology/Procedures Radiology/Procedures [] Course & Med Decision Making Course & Med Decision Making Pertinent Labs and Imaging studies reviewed. (See chart for details) Patient was started on Protonix drip, blood transfusion ordered case discussed with [facility] under transferred to [] Final Impression Final Impression [] Problems: (1) Upper GI bleeding Dragon Disclaimer Dragon Disclaimer This electronic medical record was generated, in whole or in part, using a voice recognition dictation system. JANAE DUTTON MD Sep 19, 2018 19:36
[2018-09-19 19:37] VITALS: BP 98/58
--- NOTE | 2018-09-19 20:38 | RAD ---
AP portable chest 09/19/2018. Reason for exam: Chest pain. Comparison is made with a study of 05/04/2018. Right hemidiaphragm remains elevated. There is suggestion of mild right basilar atelectasis. There may be some retrocardiac left lower lobe opacity, although this is not appreciably changed from the previous exam. No new infiltrate or effusion is seen. The heart appears enlarged, but unchanged. IMPRESSION: Stable radiographic appearance. Electronically signed by: Joey Myrick Jr., MD (09/19/2018 8:35 PM) [facility]
[2018-09-19 20:55] LABS: PLT ESTIMATE ADEQUATE (ADEQUATE); POLYCHROMASIA SLIGHT
== END 2018-09-19 20:45 | disposition short-term general hospital (02) ==
LOC: ER 18:17
DX: K92.2 Gastrointestinal hemorrhage, unspecified (principal); I50.9 Heart failure, unspecified; I48.91 Unspecified atrial fibrillation
CPT/HCPCS: 36415; 71045; 80053; 82274; 84484; 85025; 85730; 86850; 86900; 86901; 96365; 96366; 96376; 99285; C9113

== ENCOUNTER 2018-10-01 12:39 | Emergency (ER) | payer MEDICARE ==
[~2018-10-01] VITALS: Ht 172.7 cm; Wt 93.8 kg
--- NOTE | 2018-10-01 12:56 | EKG ---
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
[2018-10-01 13:18] LABS: BASO % 1 % (0-3); EOS % 0 % (0-3); HEMATOCRIT 26.3 % (39.0-53.0); HEMOGLOBIN 8.8 g/dL (13.0-17.5); LYMPH # 0.2 x10^3/uL (1.0-4.8); LYMPH % 3 % (24-48); MEAN CORPUSCULAR HEMOGLOBIN 33 pg (25-35); MEAN CORPUSCULAR HGB CONC 34 g/dL (31-37); MEAN CORPUSCULAR VOLUME 99 fL (79-100); MONO # 0.4 x10^3/uL (0.0-1.1); MONO % 7 % (0-9); NEUT # 5.5 x10^3uL (1.8-7.7); NEUT % 89 % (31-73); PLATELET COUNT 141 x10^3/uL (140-400); RED BLOOD COUNT 2.66 x10^6/uL (4.30-5.70); WHITE BLOOD COUNT 6.2 x10^3/uL (4.0-11.0)
[2018-10-01] MEDS ORDERED: ONDANSETRON PF 4 MG/2 ML VIAL. IV ONE (13:30)
[2018-10-01] MEDS ORDERED: HYDROmorphone PF 1 MG/ML DISP.SYRIN IV ONE ×2 (13:30→16:00)
[2018-10-01 13:33] LABS: ALBUMIN 2.9 g/dL (3.4-5.0); CALCIUM 8.7 mg/dL (8.5-10.1); CREATININE 2.9 mg/dL (0.7-1.3); DIRECT BILIRUBIN 4.7 mg/dL (0.0-0.2); GFR 21.2; POTASSIUM 3.8 mmol/L (3.5-5.1); TOTAL BILIRUBIN 5.9 mg/dL (0.2-1.0); TOTAL PROTEIN 6.7 g/dL (6.4-8.2)
--- NOTE | 2018-10-01 13:48 | PHYS DOC ---
Past History Past Medical History: A-Fib, Arthritis, CAD, CHF, GERD, High Cholesterol, Heart Disease, Hypertension Past Surgical History: Coronary Bypass Surgery, Knee Replacement Alcohol Use: Heavy Drug Use: None Adult General Chief Complaint Chief Complaint: ABDOMINAL PAIN HPI HPI 69-year-old male with a history of a GI bleed recently discharged from on September 29 after negative workup presenting to the emergency department today with epigastric abdominal pain and vomiting. Prior to arrival he took MiraLAX and Tums. Mild improvement. He had a bowel movement yesterday which is soft. He denies any darkness in stool. He was taken off his xerolto which she was on for atrial fibrillation prior to discharge. He has a history of alcoholism but drinks less frequently now. He reports drinking approximately 2 months ago. Review of systems is negative for fevers chills. Positive for abdominal pain nausea and vomiting. His vomitus is nonbilious and nonbloody. All other review of systems is negative unless otherwise noted in history of present illness. ED course: 69-year-old male presenting the emergency department today with abdominal pain vomiting. EKG obtained and reviewed by myself shows A. fib with intermittent PVCs. Variable waveform in the anterior lateral leads. Repolarization abnormalities present. Does not meet STEMI criteria, not suggestive of ACS. Otherwise blood work obtained which showed an elevated lipase and bilirubin. AST mildly elevated. ALT within normal limits. Hemoglobin is 8.8 which she reports is about what it was at discharge at . Otherwise BUN and creatinine are elevated. Troponin within normal limits. CT abdomen pelvis shows mesenteric and retroperitoneal edema related to the patient's liver disease. Cholelithiasis present. Choledocholithiasis cannot be excluded. The patient appears volume overloaded on examination with peripheral edema and crackles in the lung bases. We will give the patient IV antibiotics until choledocholithiasis can be excluded from the differential diagnosis. We will transfer the patient to . I spoke with a nurse at the transfer team. Transferring doctor Dr. Wise accepted the pt for transfer. The patient was then transferred for further treatment and care. He was in stable condition prior to transfer. Review of Systems Review of Systems SEE ABOVE. Current Medications Current Medications Current Medications Medications (Trade) Dose Ordered Sig/Radames Start Time Stop Time Status Last Admin Dose Admin Hydromorphone HCl (Dilaudid) 0.5 mg 1X ONCE 10/01/18 13:30 3/15/19 13:31 DC 10/01/18 13:29 0.5 MG Ondansetron HCl (Zofran) 4 mg 1X ONCE 10/01/18 13:30 10/01/18 13:31 DC 10/01/18 13:28 4 MG Allergies Allergies Allergies Coded Allergies Type Severity Reaction Last Updated Verified No Known Drug Allergies 10/14/17 No Physical Exam Physical Exam SEE ABOVE Constitutional: Well developed, well nourished, no acute distress, non-toxic appearance. HENT: Normocephalic, atraumatic, bilateral external ears normal, oropharynx moist, no oral exudates, nose normal. [] Eyes: PERRLA, EOMI, conjunctiva normal, no discharge. Neck: Normal range of motion, no tenderness, supple, no stridor. [] Cardiovascular:Heart rate regular rhythm, no murmur Lungs & Thorax: Bilateral breath sounds clear to auscultation [] Abdomen: Bowel sounds normal, soft, mild epigastric tenderness. equivocal crockett 's sign with ttp in ruq. nontender appendix/mcburneys point. no masses, no pulsatile masses. Skin: Warm, dry, no erythema, no rash. jaundiced. Back: No tenderness, no CVA tenderness. Extremities: No tenderness, no cyanosis, no clubbing, ROM intact, no edema. [] Neurologic: Alert and oriented X 3, normal motor function, normal sensory function, no focal deficits noted. Psychologic: Affect normal, judgement normal, mood normal. [] Current Patient Data Vital Signs Vital Signs Date Time Temp Pulse Resp B/P (MAP) Pulse Ox O2 Delivery O2 Flow Rate FiO2 10/01/18 13:29 24 94 Nasal Cannula 2.0 10/01/18 12:46 97.6 76 Lab Results Laboratory Tests Test 10/01/18 13:01 White Blood Count 6.2 x10^3/uL (4.0-11.0) Red Blood Count 2.66 x10^6/uL (4.30-5.70) L Hemoglobin 8.8 g/dL (13.0-17.5) L Hematocrit 26.3 % (39.0-53.0) L Mean Corpuscular Volume 99 fL (79-100) Mean Corpuscular Hemoglobin 33 pg (25-35) Mean Corpuscular Hemoglobin Concent 34 g/dL (31-37) Red Cell Distribution Width 23.0 % (11.5-14.5) H Platelet Count 141 x10^3/uL (140-400) Neutrophils (%) (Auto) 89 % (31-73) H Lymphocytes (%) (Auto) 3 % (24-48) L Monocytes (%) (Auto) 7 % (0-9) Eosinophils (%) (Auto) 0 % (0-3) Basophils (%) (Auto) 1 % (0-3) Neutrophils # (Auto) 5.5 x10^3uL (1.8-7.7) Lymphocytes # (Auto) 0.2 x10^3/uL (1.0-4.8) L Monocytes # (Auto) 0.4 x10^3/uL (0.0-1.1) Eosinophils # (Auto) 0.0 x10^3/uL (0.0-0.7) Basophils # (Auto) 0.0 x10^3/uL (0.0-0.2) Platelet Estimate Pending Sodium Level 132 mmol/L (136-145) L Potassium Level 3.8 mmol/L (3.5-5.1) Chloride Level 95 mmol/L (98-107) L Carbon Dioxide Level 25 mmol/L (21-32) Anion Gap 12 (6-14) Blood Urea Nitrogen 60 mg/dL (8-26) H Creatinine 2.9 mg/dL (0.7-1.3) H Estimated GFR (Cockcroft-Gault) 21.2 Glucose Level 141 mg/dL (70-99) H Calcium Level 8.7 mg/dL (8.5-10.1) Total Bilirubin 5.9 mg/dL (0.2-1.0) H Direct Bilirubin 4.7 mg/dL (0.0-0.2) H Aspartate Amino Transferase (AST) 93 U/L (15-37) H Alanine Aminotransferase (ALT) 47 U/L (16-63) Alkaline Phosphatase 343 U/L (46-116) H Troponin I Quantitative < 0.017 ng/mL (0-0.055) Total Protein 6.7 g/dL (6.4-8.2) Albumin 2.9 g/dL (3.4-5.0) L Lipase 3901 U/L (73-393) H EKG EKG [] Radiology/Procedures Radiology/Procedures [] Course & Med Decision Making Course & Med Decision Making Pertinent Labs and Imaging studies reviewed. (See chart for details) [] Dragon Disclaimer Dragon Disclaimer This electronic medical record was generated, in whole or in part, using a voice recognition dictation system. Departure Departure: Impression: Primary Impression: Epigastric abdominal pain Additional Impressions: Pancreatitis Elevated bilirubin Nausea and vomiting Cholelithiasis Disposition: XFER SHT-TRM HOSP () Condition: STABLE Referrals: CHAPARRITA HEREDIA MD (PCP) Critical Care Time Critical care time spent was 45 minutes exclusive of procedures. Time was spent evaluating the patient, ordering the administration of medications, reevaluating the patient, discussing with the transfer team and documenting. Problem Qualifiers VANESA RAMON MD Oct 01, 2018 13:48
[2018-10-01 14:09] LABS: TOXIC GRANULATION PRESENT
[2018-10-01 14:11] LABS: PLT ESTIMATE ADEQUATE (ADEQUATE)
[2018-10-01 14:12] LABS: ANISOCYTOSIS MOD; POIKILOCYTOSIS SLIGHT
[2018-10-01] MEDS ORDERED: PIP/TAZO PER PHARMACY MC PRN (14:15)
--- NOTE | 2018-10-01 14:26 | RAD ---
CT of the abdomen without contrast, 10/01/2018: HISTORY: Abdominal pain, elevated lipase Noncontrast scans were obtained and compared to a study from 05/09/2016. There is a small amount of right-sided pleural fluid. There is streaky atelectasis in the lung bases, more so on the right. No left-sided pleural fluid is evident. The heart is generally enlarged. Extensive coronary artery calcifications are present. The unopacified liver is unremarkable. There are dense gallstones in the gallbladder. The gallbladder beach are poorly defined due to adjacent edema. No pancreatic mass is evident. The spleen is at the upper limits of normal in size measuring 14 cm in craniocaudad extent. No renal abnormality is detected. There is moderate calcific plaquing of the aorta and its branches. Multiple small retroperitoneal and mesenteric lymph nodes are seen without definite pathologic enlargement. There is streaky increased density compatible with edema in the mesentery as well as in the peripancreatic soft tissues. There is a small volume of ascites in the abdomen. There is streaky increased density in the subcutaneous soft tissues in the lower abdominal wall extending into the flank and gluteal regions suggesting anasarca. The bowel loops are not dilated. Several sigmoid diverticula are noted. No free air is evident in the abdomen. There is a mild thoracolumbar scoliosis with moderate multilevel degenerative change. IMPRESSION: 1. Cardiomegaly with extensive coronary artery calcifications. 2. Tiny right pleural effusion with associated basilar atelectasis. 3. Streaky mesenteric and retroperitoneal edema likely related to the patient's known liver disease. Pancreatitis cannot be excluded in the presence of this edema. 4. Small to moderate volume of ascites, improved since 05/09/2016. 5. Mild splenomegaly. 6. Cholelithiasis. Pericholecystic edema is likely related to the generalized mesenteric edema. Cholecystitis cannot be excluded. 7. Anasarca. PQRS Compliance Statement: One or more of the following individualized dose reduction techniques were utilized for this examination: 1. Automated exposure control 2. Adjustment of the mA and/or kV according to patient size 3. Use of iterative reconstruction technique Electronically signed by: Ebenezer Lange MD (10/01/2018 2:23 PM) [facility]
[2018-10-01] MEDS ORDERED: PIPERACILLIN/TAZOBACTAM 2.25 GM in IV NORMAL SALINE 50ML 50 ML IV ONE (14:30)
[2018-10-01 15:28] LABS: BACTERIA,URINE 0 /HPF (0-FEW); BILIRUBIN,URINE NEG (NEG); CLARITY,URINE HAZY; COLOR,URINE AMBER; GLUCOSE,URINE NEG (NEG); NITRITE,URINE NEG (NEG); RBC,URINE OCC /HPF (0-2); UROBILINOGEN,URINE 4 mg/dL (0.2 mg/dL); WBC,URINE 0 /HPF (0-4)
[2018-10-01 15:29] LABS: HYALINE CASTS, URINE OCC /HPF; SQUAMOUS EPITHELIAL CELL,UR OCC /LPF
[2018-10-01] MEDS ORDERED: METOCLOPRAMIDE HCL 10 MG/2 ML VIAL. IV ONE (16:00)
[2018-10-01 16:02] VITALS: BP 115/60
== END 2018-10-01 16:12 | disposition short-term general hospital (02) ==
LOC: ER 12:39
DX: K85.90 Acute pancreatitis without necrosis or infection, unspecified (principal); K80.20 Calculus of gallbladder without cholecystitis without obstruction; E80.7 Disorder of bilirubin metabolism, unspecified; R11.2 Nausea with vomiting, unspecified; R74.8 Abnormal levels of other serum enzymes; I48.91 Unspecified atrial fibrillation; M19.90 Unspecified osteoarthritis, unspecified site; I25.810 Atherosclerosis of coronary artery bypass graft(s) without angina pectoris; I11.0 Hypertensive heart disease with heart failure; I50.9 Heart failure, unspecified; K21.9 Gastro-esophageal reflux disease without esophagitis; E78.00 Pure hypercholesterolemia, unspecified; F10.20 Alcohol dependence, uncomplicated; Y90.9 Presence of alcohol in blood, level not specified
CPT/HCPCS: 36415; 74150; 80048; 80076; 81001; 83690; 84484; 85025; 93005; 96365; 96375; 96376; 99285; J1170; J2405; J2543; J2765; J3010

== ENCOUNTER → 2018-11-09 | Outpatient (CLI) | payer MEDICARE ==
[2018-11-09 12:06] LABS: CALCIUM 9.1 mg/dL (8.5-10.1); CREATININE 2.5 mg/dL (0.7-1.3); GFR 25.1
== END | disposition home or self-care (01) ==
LOC: LAB 11:13
PROVIDERS: ATTEND Family Medicine
DX: I13.0 Hypertensive heart and chronic kidney disease with heart failure and stage 1 through stage 4 chronic kidney disease, or unspecified chronic kidney disease (principal); N18.3 Chronic kidney disease, stage 3 (moderate); I50.22 Chronic systolic (congestive) heart failure
CPT/HCPCS: 36415; 80048

== ENCOUNTER → 2019-08-17 | Outpatient (CLI) | payer MEDICARE ==
[~2019-08-17] MED LIST changes: -BUME1TAB PO; +BUME1TAB3 PO; +OMEP40CA45 PO; -OMEP40CA5 PO
[2019-08-17 16:16] LABS: CALCIUM 8.8 mg/dL (8.5-10.1); GFR 32.4; POTASSIUM 3.9 mmol/L (3.5-5.1)
== END | disposition home or self-care (01) ==
LOC: LAB 14:53
PROVIDERS: ATTEND Nurse Practitioner Family
DX: I10 Essential (primary) hypertension (principal)
CPT/HCPCS: 36415; 80048

== ENCOUNTER → 2020-03-09 | Outpatient (CLI) | payer MEDICARE ==
[~2020-03-09] MED LIST changes: -VALA1000 PO; +VALA10008 PO
[2020-03-09 13:12] LABS: CALCIUM 8.2 mg/dL (8.5-10.1); CREATININE 1.8 mg/dL (0.7-1.3); GFR 36.5; POTASSIUM 3.8 mmol/L (3.5-5.1)
== END | disposition home or self-care (01) ==
LOC: LAB 11:26
PROVIDERS: ATTEND Internal Medicine Advanced Heart Failure and Transplant Cardiology
DX: I50.20 Unspecified systolic (congestive) heart failure (principal)
CPT/HCPCS: 36415; 80048

== ENCOUNTER → 2020-03-09 | Outpatient (CLI) | payer MEDICARE ==
[2020-03-09 12:50] LABS: BASO % 1 % (0-3); EOS # 0.2 x10^3/uL (0.0-0.7); EOS % 4 % (0-3); HEMATOCRIT 30.3 % (39.0-53.0); HEMOGLOBIN 10.2 g/dL (13.0-17.5); LYMPH # 0.7 x10^3/uL (1.0-4.8); LYMPH % 19 % (24-48); MEAN CORPUSCULAR HEMOGLOBIN 39 pg (25-35); MEAN CORPUSCULAR HGB CONC 34 g/dL (31-37); MEAN CORPUSCULAR VOLUME 114 fL (79-100); MONO # 0.4 x10^3/uL (0.0-1.1); MONO % 10 % (0-9); NEUT # 2.6 x10^3uL (1.8-7.7); NEUT % 66 % (31-73); PLATELET COUNT 89 x10^3/uL (140-400); RED BLOOD COUNT 2.65 x10^6/uL (4.30-5.70); RED CELL DISTRIBUTION WIDTH 16.7 % (11.5-14.5); WHITE BLOOD COUNT 3.9 x10^3/uL (4.0-11.0)
[2020-03-09 13:13] LABS: CALCIUM 8.3 mg/dL (8.5-10.1); CREATININE 1.8 mg/dL (0.7-1.3); GFR 36.5; MAGNESIUM 2.1 mg/dL (1.8-2.4); POTASSIUM 3.9 mmol/L (3.5-5.1)
== END | disposition home or self-care (01) ==
LOC: LAB 11:34
PROVIDERS: ATTEND Internal Medicine Cardiovascular Disease
DX: I48.0 Paroxysmal atrial fibrillation (principal); I25.5 Ischemic cardiomyopathy
CPT/HCPCS: 36415; 80048; 83735; 85025

== ENCOUNTER 2020-12-09 12:56 | Emergency (ER) | payer MEDICARE ==
[~2020-12-09] VITALS: Ht 170.2 cm; Wt 77.2 kg
[~2020-12-09 12:56] MED LIST changes: +LISI10TA16 PO; -LISI10TA2 PO
--- NOTE | 2020-12-09 13:06 | PHYS DOC ---
Past History Past Medical History: A-Fib, Arthritis, CAD, CHF, GERD, High Cholesterol, Heart Disease, Hypertension Past Surgical History: Coronary Bypass Surgery, Knee Replacement Alcohol Use: Heavy Drug Use: None Adult General HPI HPI Patient is an 79-year-old male presenting for fever. Reports proximately 2 weeks ago without any known inciting event, sick contact, trauma or concerning exposure feeling more weak and lethargic than baseline. Reports approximately 1 week ago developing URI-like symptoms such as nasal drainage, postnasal drip and dry nonproductive cough. He has been nauseous and had several episodes of emesis that have been nonbloody and nonbilious in nature but have been severe enough to have caused him a black eye. He is here with daughter who assists with his care. She is concerned that patient's condition is declined in last x1 week. Patient reported feeling hot yesterday and temperature was taken this morning with a reading of 101 concerning daughter to bring patient in for evaluation. There is concern for darkened urine and recent difficulty urinating which is not normal for patient. He does have history of congestive heart failure with ejection fraction of 30%. Patient received x2 Moderna COVID-19 vaccinations August 2020, he is concerned of potential Covid infection and wants to be swabbed today Review of Systems Review of Systems Fourteen body systems of review of systems have been reviewed. See HPI for pertinent positives and negative responses, other pack all other systems are negative, non-pertinent or non-contributory Allergies Allergies Allergies Coded Allergies Type Severity Reaction Last Updated Verified No Known Drug Allergies 10/14/17 No Physical Exam Physical Exam Constitutional: Well developed, well nourished, no acute distress, non-toxic appearance. HENT: Normocephalic, atraumatic but patient does have ecchymosis present to right inferior orbit consistent with healing black eye, bilateral external ears normal, oropharynx moist with postnasal drip present, no oral exudates, nose normal. Eyes: PERRLA, EOMI, conjunctiva normal, no discharge. Neck: Normal range of motion, no tenderness, supple, no stridor. Cardiovascular: Heart rate regular, ventricularly paced with external pacemaker present in left upper outer chest and well-appearing Lungs & Thorax: No obvious respiratory distress but Rales present in bilateral lung bases Abdomen: Bowel sounds normal, soft, no tenderness, no masses, no pulsatile masses. Nonsurgical abdomen, no peritoneal signs Skin: Warm, dry, no erythema, no rash. Patient does have ecchymosis on extremities in various stages of healing Back: No tenderness, no CVA tenderness. Extremities: No tenderness, no cyanosis, no clubbing, ROM intact, no edema. Neurologic: Alert and oriented X 3, grossly normal motor & sensory function, no focal deficits noted. Psychologic: Affect normal, judgement normal, mood normal. Current Patient Data Vital Signs Vital Signs Date Time Temp Pulse Resp B/P (MAP) Pulse Ox O2 Delivery O2 Flow Rate FiO2 12/09/20 13:48 99.5 76 20 91/47 (62) 93 Room Air Vital Signs Date Time Temp Pulse Resp B/P (MAP) Pulse Ox O2 Delivery O2 Flow Rate FiO2 12/09/20 13:48 99.5 76 20 91/47 (62) 93 Room Air Lab Results Laboratory Tests Test 12/09/20 13:21 12/09/20 13:40 12/09/20 13:41 White Blood Count 14.8 x10^3/uL Red Blood Count 2.67 x10^6/uL Hemoglobin 10.2 g/dL Hematocrit 30.3 % Mean Corpuscular Volume 114 fL Mean Corpuscular Hemoglobin 38 pg Mean Corpuscular Hemoglobin Concent 34 g/dL Red Cell Distribution Width 16.7 % Platelet Count 73 x10^3/uL Neutrophils (%) (Auto) 93 % Lymphocytes (%) (Auto) 3 % Monocytes (%) (Auto) 5 % Eosinophils (%) (Auto) 0 % Basophils (%) (Auto) 1 % Neutrophils # (Auto) 13.7 x10^3uL Lymphocytes # (Auto) 0.4 x10^3/uL Monocytes # (Auto) 0.7 x10^3/uL Eosinophils # (Auto) 0.0 x10^3/uL Basophils # (Auto) 0.1 x10^3/uL Platelet Estimate Pending Sodium Level 134 mmol/L Potassium Level 3.8 mmol/L Chloride Level 100 mmol/L Carbon Dioxide Level 24 mmol/L Anion Gap 10 Blood Urea Nitrogen 57 mg/dL Creatinine 2.4 mg/dL Estimated GFR (Cockcroft-Gault) 26.2 BUN/Creatinine Ratio 24 Glucose Level 131 mg/dL Lactic Acid Level 2.3 mmol/L Calcium Level 8.4 mg/dL Total Bilirubin 2.5 mg/dL Aspartate Amino Transf (AST/SGOT) 26 U/L Alanine Aminotransferase (ALT/SGPT) 13 U/L Alkaline Phosphatase 89 U/L Troponin I Quantitative 0.058 ng/mL KU-Yen-C-Type Natriuretic Peptide 03431 pg/mL Total Protein 5.7 g/dL Albumin 2.5 g/dL Albumin/Globulin Ratio 0.8 Influenza Type A (Rapid) Negative Influenza Type B (Rapid) Negative Urine Collection Type Unknown Urine Color Antonina Urine Clarity Clear Urine pH 5.0 Urine Specific [place] 1.015 Urine Protein 100 mg/dl Urine Glucose (UA) Neg mg/dL Urine Ketones (Stick) Trace mg/dL Urine Blood Neg Urine Nitrite Pos Urine Bilirubin Mod Urine Urobilinogen Dipstick 2.0 mg/dL Urine Leukocyte Esterase Neg Urine RBC 1-2 /HPF Urine WBC 1-4 /HPF Urine Squamous Epithelial Cells Few /LPF Urine Bacteria 0 /HPF Current Medications Medications (Trade) Dose Ordered Sig/Radames Route PRN Reason Start Time Stop Time Status Last Admin Dose Admin Sodium Chloride 500 ml @ 0 mls/hr 1X ONCE IV 12/09/20 13:15 12/09/20 13:25 DC 12/09/20 13:15 Sodium Chloride 500 ml @ 0 mls/hr 1X ONCE IV 12/09/20 14:15 12/09/20 14:16 DC Sodium Chloride 1,000 ml @ 1,000 mls/hr 1X ONCE IV 12/09/20 14:15 12/09/20 15:14 Ceftriaxone Sodium 1 gm/ Sodium Chloride 50 ml @ 100 mls/hr 1X ONCE IV 12/09/20 14:15 12/09/20 14:44 12/09/20 14:25 Sodium Chloride 50 ml @ As Directed STK-MED ONCE .ROUTE 12/09/20 14:19 12/09/20 14:19 DC Ceftriaxone Sodium (Rocephin) 1 gm STK-MED ONCE .ROUTE 12/09/20 14:19 12/09/20 14:19 DC EKG EKG EKG ordered and interpreted by myself at 1330 hrs. as a ventricular paced rhythm at 70 bpm, wide QRS at 190, prolonged QTC at 535, right axis deviation, T wave inversions noted in leads III, aVF and V1, no STEMI Radiology/Procedures Radiology/Procedures EXAM: XR CHEST 1V 12/09/2020 1:19 PM CLINICAL INDICATION: Fever COMPARISON: Chest radiograph 09/19/2018 TECHNIQUE: AP view of the chest FINDINGS: There is a new pacemaker/AICD. There are surgical changes of median sternotomy. Cardiomegaly is redemonstrated. The right hemidiaphragm remains elevated. There are streaky opacities in the right lung base, likely atelectasis. Mild prominence of central vascularity is unchanged. There is no pleural effusion or pneumothorax. There is advanced degenerative joint disease of the acromioclavicular joints. IMPRESSION: 1. Elevated right hemidiaphragm with unchanged right basilar atelectasis. 2. Unchanged cardiomegaly. Electronically signed by: Hoda Castaneda MD (12/09/2020 1:40 PM) [id number] Heart Score C/O Chest Pain: No HEART Score for Chest Pain: HEART Score for Chest Pain Response (Comments) Value History Slighlty/Non-Suspicious 0 ECG Nonspecific Repolarizatio 1 Age > 65 2 Risk Factors >3 Risk Factors or Hx CAD 2 Troponin >1-<3x Normal Limit 1 Total 6 Risk Factors: Risk Factors: DM, Current or recent (<one month) smoker, HTN, HLP, family history of CAD, obesity. Risk Scores: Risk Factors: DM, Current or recent (<one month) smoker, HTN, HLP, family history of CAD, obesity. Course & Med Decision Making Course & Med Decision Making Hypotensive otherwise hemodynamically stable on arrival. HPI and physical exam nonconcerning for emergent or surgical findings ER work-up ensued and concerning for sepsis with UTI being likely source. 1 g Rocephin administered. Given recent URI-like symptoms and patient request, Covid PCR tested. This will take approximately 24 hours to result. Elevated troponin likely type II NSTEMI, will treat underlying disease Patient remained hypotensive despite repositioning attempts. Gentle fluid rehydration with 1 L IV normal saline administered due to low ejection fraction of 30% with improvement in blood pressure readings with MAP greater than 65. Discussed potential need for pressors in the future Daughter is patient's POA. I reviewed entirety of the case with patient and daughter at bedside. She reiterates he is full CODE STATUS at this time. I discussed my concern given patient's numerous comorbidities and recommended hospital admission, they requested transfer to [facility] contacted and case reviewed, patient was excepted under care of Dr. Dave Patient and daughter updated on proposed plan of care that included hospital transfer via EMS, they were amenable. All questions and concerns addressed prior to ER transfer Critical Care Time This patient required critical care. Due to the fact that the patient required a significant amount of one on one physician - patient contact time, ordering and review of studies, arranging urgent treatment with development of a management plan, evaluation of patients response to treatment with frequent reassessments, and discussions with other providers this patient required 60 minutes of crit ical care time. Critical care time was indicated due to the inherent instability and/or potential for instability in this patient. The critical care time that is allocated to this patient is above and beyond any time spent on any other billable procedures performed on this patient. Dragon Disclaimer Dragon Disclaimer This electronic medical record was generated, in whole or in part, using a voice recognition dictation system. Departure Departure: Impression: Primary Impression: Sepsis due to urinary tract infection Additional Impressions: Elevated troponin Person under investigation for COVID-19 CHF (congestive heart failure) Disposition: [facility] ([facility]) Admitting Physician: Other (dr lillie dave) Condition: STABLE Referrals: CHAPARRITA HEREDIA MD (PCP) Problem Qualifiers ADRIAN PICHARDO DO December 09, 2020 13:06
[2020-12-09] MEDS ORDERED: IV NORMAL SALINE 500ML 500 ML IV ONE ×2 (13:15→14:15)
--- NOTE | 2020-12-09 13:42 | RAD ---
EXAM: XR CHEST 1V 12/09/2020 1:19 PM CLINICAL INDICATION: Fever COMPARISON: Chest radiograph 09/19/2018 TECHNIQUE: AP view of the chest FINDINGS: There is a new pacemaker/AICD. There are surgical changes of median sternotomy. Cardiomega ly is redemonstrated. The right hemidiaphragm remains elevated. There are streaky opacities in the ri ght lung base, likely atelectasis. Mild prominence of central vascularity is unchanged. There is no p leural effusion or pneumothorax. There is advanced degenerative joint disease of the acromioclavicula r joints. IMPRESSION: 1. Elevated right hemidiaphragm with unchanged right basilar atelectasis. 2. Unchanged cardiomegaly. Electronically signed by: Hoda Castaneda MD (12/09/2020 1:40 PM) [id number]
[2020-12-09 13:45] LABS: BASO # 0.1 x10^3/uL (0.0-0.2); BASO % 1 % (0-3); EOS % 0 % (0-3); HEMATOCRIT 30.3 % (39.0-53.0); HEMOGLOBIN 10.2 g/dL (13.0-17.5); LYMPH # 0.4 x10^3/uL (1.0-4.8); LYMPH % 3 % (24-48); MEAN CORPUSCULAR HEMOGLOBIN 38 pg (25-35); MEAN CORPUSCULAR HGB CONC 34 g/dL (31-37); MEAN CORPUSCULAR VOLUME 114 fL (79-100); MONO # 0.7 x10^3/uL (0.0-1.1); MONO % 5 % (0-9); NEUT # 13.7 x10^3uL (1.8-7.7); NEUT % 93 % (31-73); PLATELET COUNT 73 x10^3/uL (140-400); RED BLOOD COUNT 2.67 x10^6/uL (4.30-5.70); RED CELL DISTRIBUTION WIDTH 16.7 % (11.5-14.5); WHITE BLOOD COUNT 14.8 x10^3/uL (4.0-11.0)
[2020-12-09 14:01] LABS: CALCIUM 8.4 mg/dL (8.5-10.1); CREATININE 2.4 mg/dL (0.7-1.3); GFR 26.2; POTASSIUM 3.8 mmol/L (3.5-5.1)
[2020-12-09 14:03] VITALS: BP 100/42
[2020-12-09 14:13] LABS: ALBUMIN 2.5 g/dL (3.4-5.0); ALBUMIN/GLOBULIN RATIO 0.8 (1.0-1.7); TOTAL BILIRUBIN 2.5 mg/dL (0.2-1.0); TOTAL PROTEIN 5.7 g/dL (6.4-8.2)
[2020-12-09] MEDS ORDERED: IV NORMAL SALINE 1,000ML 1,000 ML IV ONE (14:15)
[2020-12-09] MEDS ORDERED: cefTRIAXone SODIUM 1 GM VIAL ONE (14:19)
[2020-12-09] MEDS ORDERED: IV NORMAL SALINE 50ML 50 ML ONE (14:19)
--- NOTE | 2020-12-09 14:21 | EKG ---
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
[2020-12-09 14:24] LABS: INFLUENZA A PATIENT NEGATIVE (NEGATIVE); INFLUENZA B PATIENT NEGATIVE (NEGATIVE)
[2020-12-09 14:33] LABS: CLARITY,URINE CLEAR; COLOR,URINE AMBER; GLUCOSE,URINE NEG (NEG)
[2020-12-09 14:34] LABS: BACTERIA,URINE 0 /HPF (0-FEW); BILIRUBIN,URINE MOD (NEG); NITRITE,URINE POS (NEG); SQUAMOUS EPITHELIAL CELL,UR FEW /LPF
[2020-12-09 15:55] LABS: ANISOCYTOSIS MOD; HYPOCHROMIA SLIGHT; OVALOCYTES FEW; PLT ESTIMATE DECREASED (ADEQUATE); POLYCHROMASIA SLIGHT
== END 2020-12-09 16:23 | disposition short-term general hospital (02) ==
LOC: ER 12:56
DX: A41.9 Sepsis, unspecified organism (principal); R77.8 Other specified abnormalities of plasma proteins; I11.0 Hypertensive heart disease with heart failure; I50.9 Heart failure, unspecified; K21.9 Gastro-esophageal reflux disease without esophagitis; E78.5 Hyperlipidemia, unspecified; Z20.822 Contact with and (suspected) exposure to COVID-19
CPT/HCPCS: 36415; 71045; 80053; 81001; 83605; 83880; 84484; 85025; 87040; 87086; 87804; 93005; 96361; 96365; 99291; C9803; J0696; J7040; U0003

== ENCOUNTER → 2020-12-24 | Outpatient (CLI) | payer MEDICARE ==
[2020-12-09 14:03] VITALS: BP 100/42
[~2020-12-24] MED LIST changes: -OMEP40CA45 PO; +OMEP40CA7 PO
[2020-12-24 14:13] LABS: BASO # 0.1 x10^3/uL (0.0-0.2); BASO % 1 % (0-3); EOS # 0.1 x10^3/uL (0.0-0.7); EOS % 2 % (0-3); HEMATOCRIT 27.5 % (39.0-53.0); LYMPH # 0.4 x10^3/uL (1.0-4.8); LYMPH % 5 % (24-48); MEAN CORPUSCULAR HEMOGLOBIN 38 pg (25-35); MEAN CORPUSCULAR HGB CONC 33 g/dL (31-37); MEAN CORPUSCULAR VOLUME 116 fL (79-100); MONO # 0.4 x10^3/uL (0.0-1.1); MONO % 6 % (0-9); NEUT # 6.2 x10^3uL (1.8-7.7); NEUT % 86 % (31-73); PLATELET COUNT 177 x10^3/uL (140-400); RED BLOOD COUNT 2.37 x10^6/uL (4.30-5.70); RED CELL DISTRIBUTION WIDTH 16.8 % (11.5-14.5); WHITE BLOOD COUNT 7.2 x10^3/uL (4.0-11.0)
[2020-12-24 14:43] LABS: PLT ESTIMATE ADEQUATE (ADEQUATE)
[2020-12-24 15:19] LABS: ALBUMIN 2.4 g/dL (3.4-5.0); ALBUMIN/GLOBULIN RATIO 0.7 (1.0-1.7); CALCIUM 7.9 mg/dL (8.5-10.1); CREATININE 2.4 mg/dL (0.7-1.3); GFR 26.1; POTASSIUM 5.3 mmol/L (3.5-5.1); TOTAL BILIRUBIN 0.8 mg/dL (0.2-1.0); TOTAL PROTEIN 5.7 g/dL (6.4-8.2)
== END ==
LOC: SPEC 13:19
PROVIDERS: ATTEND Family Medicine
DX: Z45.2 Encounter for adjustment and management of vascular access device (principal); A41.01 Sepsis due to Methicillin susceptible Staphylococcus aureus
CPT/HCPCS: 36415; 80053; 85025

== ENCOUNTER → 2020-12-27 | Outpatient (CLI) | payer MEDICARE ==
[2020-12-09 14:03] VITALS: BP 100/42
[2020-12-27 13:31] LABS: ALBUMIN 2.3 g/dL (3.4-5.0); ALBUMIN/GLOBULIN RATIO 0.6 (1.0-1.7); CREATININE 2.4 mg/dL (0.7-1.3); GFR 26.1; POTASSIUM 5.4 mmol/L (3.5-5.1); TOTAL BILIRUBIN 0.6 mg/dL (0.2-1.0); TOTAL PROTEIN 5.9 g/dL (6.4-8.2)
== END ==
LOC: SPEC 13:08
PROVIDERS: ATTEND Family Medicine
DX: Z45.2 Encounter for adjustment and management of vascular access device (principal); I50.42 Chronic combined systolic (congestive) and diastolic (congestive) heart failure
CPT/HCPCS: 36415; 80053

== ENCOUNTER → 2020-12-31 | Outpatient (CLI) | payer MEDICARE ==
[2020-12-09 14:03] VITALS: BP 100/42
[2020-12-31 10:05] LABS: BASO % 1 % (0-3); EOS # 0.2 x10^3/uL (0.0-0.7); EOS % 6 % (0-3); HEMATOCRIT 27.5 % (39.0-53.0); HEMOGLOBIN 9.2 g/dL (13.0-17.5); LYMPH # 0.7 x10^3/uL (1.0-4.8); LYMPH % 17 % (24-48); MEAN CORPUSCULAR HEMOGLOBIN 38 pg (25-35); MEAN CORPUSCULAR HGB CONC 33 g/dL (31-37); MEAN CORPUSCULAR VOLUME 115 fL (79-100); MONO # 0.3 x10^3/uL (0.0-1.1); MONO % 8 % (0-9); NEUT # 2.8 x10^3uL (1.8-7.7); NEUT % 68 % (31-73); PLATELET COUNT 144 x10^3/uL (140-400); RED CELL DISTRIBUTION WIDTH 16.1 % (11.5-14.5); WHITE BLOOD COUNT 4.1 x10^3/uL (4.0-11.0)
[2020-12-31 10:07] LABS: ALBUMIN 2.2 g/dL (3.4-5.0); ALBUMIN/GLOBULIN RATIO 0.6 (1.0-1.7); CALCIUM 7.8 mg/dL (8.5-10.1); CREATININE 2.1 mg/dL (0.7-1.3); GFR 30.5; POTASSIUM 4.8 mmol/L (3.5-5.1); TOTAL BILIRUBIN 0.5 mg/dL (0.2-1.0); TOTAL PROTEIN 5.6 g/dL (6.4-8.2)
[2020-12-31 11:02] LABS: PLT ESTIMATE ADEQUATE (ADEQUATE)
== END ==
LOC: SPEC 09:37
PROVIDERS: ATTEND Family Medicine
DX: Z45.2 Encounter for adjustment and management of vascular access device (principal); A41.01 Sepsis due to Methicillin susceptible Staphylococcus aureus; I50.42 Chronic combined systolic (congestive) and diastolic (congestive) heart failure
CPT/HCPCS: 36415; 80053; 85025

== ENCOUNTER → 2021-01-07 | Outpatient (CLI) | payer MEDICARE ==
[2020-12-09 14:03] VITALS: BP 100/42
[2021-01-07 16:24] LABS: BASO # 0.1 x10^3/uL (0.0-0.2); BASO % 1 % (0-3); EOS # 0.3 x10^3/uL (0.0-0.7); EOS % 4 % (0-3); HEMATOCRIT 26.8 % (39.0-53.0); HEMOGLOBIN 9.1 g/dL (13.0-17.5); LYMPH # 0.6 x10^3/uL (1.0-4.8); LYMPH % 8 % (24-48); MEAN CORPUSCULAR HEMOGLOBIN 39 pg (25-35); MEAN CORPUSCULAR HGB CONC 34 g/dL (31-37); MEAN CORPUSCULAR VOLUME 114 fL (79-100); MONO # 0.2 x10^3/uL (0.0-1.1); MONO % 3 % (0-9); NEUT % 85 % (31-73); PLATELET COUNT 108 x10^3/uL (140-400); RED BLOOD COUNT 2.36 x10^6/uL (4.30-5.70); RED CELL DISTRIBUTION WIDTH 16.2 % (11.5-14.5); WHITE BLOOD COUNT 7.1 x10^3/uL (4.0-11.0)
[2021-01-07 17:54] LABS: ANISOCYTOSIS SLIGHT; OVALOCYTES FEW; PLT ESTIMATE DECREASED (ADEQUATE)
== END ==
LOC: SPEC 15:24
PROVIDERS: ATTEND Family Medicine
DX: Z45.2 Encounter for adjustment and management of vascular access device (principal)
CPT/HCPCS: 36415; 85025

== ENCOUNTER → 2021-01-09 | Outpatient (CLI) | payer MEDICARE ==
[2021-01-09 09:06] LABS: CALCIUM 7.8 mg/dL (8.5-10.1); CREATININE 2.3 mg/dL (0.7-1.3); GFR 27.4; POTASSIUM 4.2 mmol/L (3.5-5.1)
== END ==
LOC: SPEC 08:42
PROVIDERS: ATTEND Internal Medicine Infectious Disease
DX: Z45.2 Encounter for adjustment and management of vascular access device (principal)
CPT/HCPCS: 36415; 80048

== ENCOUNTER → 2021-01-14 | Outpatient (CLI) | payer MEDICARE ==
[2021-01-14 11:28] LABS: BASO # 0.1 x10^3/uL (0.0-0.2); BASO % 1 % (0-3); EOS # 0.4 x10^3/uL (0.0-0.7); EOS % 7 % (0-3); HEMATOCRIT 26.7 % (39.0-53.0); HEMOGLOBIN 8.9 g/dL (13.0-17.5); LYMPH # 0.6 x10^3/uL (1.0-4.8); LYMPH % 11 % (24-48); MEAN CORPUSCULAR HEMOGLOBIN 38 pg (25-35); MEAN CORPUSCULAR HGB CONC 33 g/dL (31-37); MEAN CORPUSCULAR VOLUME 114 fL (79-100); MONO # 0.4 x10^3/uL (0.0-1.1); MONO % 7 % (0-9); NEUT # 3.8 x10^3uL (1.8-7.7); NEUT % 74 % (31-73); PLATELET COUNT 127 x10^3/uL (140-400); RED BLOOD COUNT 2.35 x10^6/uL (4.30-5.70); RED CELL DISTRIBUTION WIDTH 16.4 % (11.5-14.5); WHITE BLOOD COUNT 5.2 x10^3/uL (4.0-11.0)
[2021-01-14 11:37] LABS: ALBUMIN/GLOBULIN RATIO 0.6 (1.0-1.7); CALCIUM 7.6 mg/dL (8.5-10.1); GFR 32.2; POTASSIUM 3.6 mmol/L (3.5-5.1); TOTAL BILIRUBIN 0.5 mg/dL (0.2-1.0); TOTAL PROTEIN 5.2 g/dL (6.4-8.2)
== END ==
LOC: SPEC 11:02
PROVIDERS: ATTEND Family Medicine
DX: Z45.2 Encounter for adjustment and management of vascular access device (principal)
CPT/HCPCS: 36415; 80053; 85025

== ENCOUNTER → 2021-01-17 | Outpatient (CLI) | payer MEDICARE ==
[2021-01-17 10:31] LABS: CALCIUM 7.7 mg/dL (8.5-10.1); CREATININE 1.9 mg/dL (0.7-1.3); GFR 34.2; POTASSIUM 4.7 mmol/L (3.5-5.1)
== END ==
LOC: LAB 09:38
PROVIDERS: ATTEND Internal Medicine Infectious Disease
DX: Z45.2 Encounter for adjustment and management of vascular access device (principal)
CPT/HCPCS: 36415; 80048

== ENCOUNTER → 2021-01-28 | Outpatient (CLI) | payer MEDICARE ==
[2021-01-28 09:27] LABS: BASO # 0.1 x10^3/uL (0.0-0.2); BASO % 1 % (0-3); EOS # 0.3 x10^3/uL (0.0-0.7); EOS % 5 % (0-3); HEMATOCRIT 27.2 % (39.0-53.0); HEMOGLOBIN 9.1 g/dL (13.0-17.5); LYMPH # 0.8 x10^3/uL (1.0-4.8); LYMPH % 15 % (24-48); MEAN CORPUSCULAR HEMOGLOBIN 38 pg (25-35); MEAN CORPUSCULAR HGB CONC 33 g/dL (31-37); MEAN CORPUSCULAR VOLUME 112 fL (79-100); MONO # 0.6 x10^3/uL (0.0-1.1); MONO % 11 % (0-9); NEUT # 3.6 x10^3uL (1.8-7.7); NEUT % 69 % (31-73); PLATELET COUNT 102 x10^3/uL (140-400); RED BLOOD COUNT 2.42 x10^6/uL (4.30-5.70); RED CELL DISTRIBUTION WIDTH 16.5 % (11.5-14.5); WHITE BLOOD COUNT 5.2 x10^3/uL (4.0-11.0)
[2021-01-28 09:32] LABS: ALBUMIN/GLOBULIN RATIO 0.6 (1.0-1.7); CALCIUM 7.3 mg/dL (8.5-10.1); CREATININE 2.1 mg/dL (0.7-1.3); GFR 30.5; POTASSIUM 3.3 mmol/L (3.5-5.1); TOTAL BILIRUBIN 0.7 mg/dL (0.2-1.0); TOTAL PROTEIN 5.2 g/dL (6.4-8.2)
== END ==
LOC: SPEC 08:48
PROVIDERS: ATTEND Internal Medicine Infectious Disease
DX: A41.01 Sepsis due to Methicillin susceptible Staphylococcus aureus (principal)
CPT/HCPCS: 36415; 80053; 85025

== ENCOUNTER → 2021-04-19 | Outpatient (CLI) | payer MEDICARE ==
[~2021-04-19] MED LIST changes: +POTA-121 PO; -POTA20TA4 PO
[2021-04-19 13:51] LABS: BASO % 1 % (0-3); EOS # 0.2 x10^3/uL (0.0-0.7); EOS % 6 % (0-3); HEMATOCRIT 29.5 % (39.0-53.0); HEMOGLOBIN 9.7 g/dL (13.0-17.5); LYMPH # 0.8 x10^3/uL (1.0-4.8); LYMPH % 21 % (24-48); MEAN CORPUSCULAR HEMOGLOBIN 37 pg (25-35); MEAN CORPUSCULAR HGB CONC 33 g/dL (31-37); MEAN CORPUSCULAR VOLUME 112 fL (79-100); MONO # 0.4 x10^3/uL (0.0-1.1); MONO % 10 % (0-9); NEUT # 2.3 x10^3uL (1.8-7.7); NEUT % 62 % (31-73); PLATELET COUNT 104 x10^3/uL (140-400); RED BLOOD COUNT 2.64 x10^6/uL (4.30-5.70); RED CELL DISTRIBUTION WIDTH 15.6 % (11.5-14.5); WHITE BLOOD COUNT 3.7 x10^3/uL (4.0-11.0)
[2021-04-19 13:55] LABS: ALBUMIN 2.4 g/dL (3.4-5.0); CREATININE 1.2 mg/dL (0.7-1.3); GFR 58.1; PHOSPHORUS 2.9 mg/dL (2.6-4.7); POTASSIUM 3.3 mmol/L (3.5-5.1)
[2021-04-19 14:22] LABS: PLT ESTIMATE DECREASED (ADEQUATE)
[2021-04-19 14:23] LABS: ANISOCYTOSIS SLIGHT
== END ==
LOC: LAB 12:37
PROVIDERS: ATTEND Nurse Practitioner Family
DX: N17.9 Acute kidney failure, unspecified (principal); E11.9 Type 2 diabetes mellitus without complications
CPT/HCPCS: 36415; 80069; 82728; 83540; 83550; 85025

== ENCOUNTER → 2021-04-26 | Outpatient (CLI) | payer MEDICARE ==
[2021-04-26 16:33] LABS: BASO % 1 % (0-3); EOS # 0.1 x10^3/uL (0.0-0.7); EOS % 4 % (0-3); HEMATOCRIT 28.1 % (39.0-53.0); HEMOGLOBIN 9.5 g/dL (13.0-17.5); LYMPH # 0.6 x10^3/uL (1.0-4.8); LYMPH % 17 % (24-48); MEAN CORPUSCULAR HEMOGLOBIN 37 pg (25-35); MEAN CORPUSCULAR HGB CONC 34 g/dL (31-37); MEAN CORPUSCULAR VOLUME 110 fL (79-100); MONO # 0.3 x10^3/uL (0.0-1.1); MONO % 8 % (0-9); NEUT # 2.4 x10^3uL (1.8-7.7); NEUT % 70 % (31-73); PLATELET COUNT 95 x10^3/uL (140-400); RED BLOOD COUNT 2.55 x10^6/uL (4.30-5.70); RED CELL DISTRIBUTION WIDTH 15.3 % (11.5-14.5); WHITE BLOOD COUNT 3.4 x10^3/uL (4.0-11.0)
[2021-04-26 16:42] LABS: ALBUMIN 2.5 g/dL (3.4-5.0); ALBUMIN/GLOBULIN RATIO 0.8 (1.0-1.7); CALCIUM 8.2 mg/dL (8.5-10.1); CREATININE 1.3 mg/dL (0.7-1.3); POTASSIUM 3.5 mmol/L (3.5-5.1); TOTAL BILIRUBIN 0.6 mg/dL (0.2-1.0); TOTAL PROTEIN 5.8 g/dL (6.4-8.2)
[2021-04-26 22:32] LABS: PLT ESTIMATE DECREASED (ADEQUATE)
[2021-04-27 01:14] LABS: AFPT MARKER 1.8 ng/mL (0.0-8.3)
== END ==
LOC: LAB 15:13
PROVIDERS: ATTEND Nurse Practitioner Adult Health
DX: I85.01 Esophageal varices with bleeding (principal); K74.60 Unspecified cirrhosis of liver
CPT/HCPCS: 36415; 80053; 82105; 84590; 85025; 85610

== ENCOUNTER → 2021-07-05 | Outpatient (CLI) | payer MEDICARE ==
[2021-07-05 14:10] LABS: CALCIUM 7.9 mg/dL (8.5-10.1); CREATININE 1.6 mg/dL (0.7-1.3); GFR 41.7; POTASSIUM 3.8 mmol/L (3.5-5.1)
== END ==
LOC: LAB 13:09
PROVIDERS: ATTEND Nurse Practitioner Family
DX: I50.812 Chronic right heart failure (principal)
CPT/HCPCS: 36415; 80048